=== PATIENT | male | born 1955 | race Hispanic/Latino ===

== ENCOUNTER 2017-07-04 09:49 | Emergency (ER) | payer OTHER ==
[2017-07-04 10:00] VITALS: RESP 18; TEMP 98; BMI 31.8
--- NOTE | 2017-07-04 10:23 | ED PDOC ---
Arrival/HPI - General Chief Complaint: Lower Extremity Problem/Injury Time Seen by Provider: 07/04/17 09:56 Historian: Patient - History of Present Illness Narrative History of Present Illness (Text): 07/04/17 10:18 61 year old male, with past medical history of hypertension and hypothyroidism, presents to the Emergency department complaining of episodes of paralysis between 7-8pm at night for three nights in a row. Patient informs his episodes begin exactly during that hour and lasts the entire night. Patient informs waking up with generalized weakness after the episodes. Patient currently denies any complaints but requests medical attention for his episodes. Patient denies any fever, chills, nausea, vomiting, diarrhea, abdominal pain, chest pain , shortness of breath or any other complaints. Time/Duration: < week Symptom Course: Unchanged Activities at Onset: Sleeping Context: Home Past Medical History - Provider Review Nursing Documentation Reviewed: Yes - Cardiac Hx Cardiac Disorders: Yes Hx Hypertension: Yes - HEENT Hx HEENT Disorder: Yes Hx Cataracts: Yes (BILATERAL SURGERY) - Endocrine/Metabolic Hx Hypothyroidism: Yes - Musculoskeletal/Rheumatological Hx Musculoskeletal Disorders: Yes Hx Falls: No Hx Unsteady Gait: Yes (CANE) - Psychiatric Hx Psychophysiologic Disorder: Yes Hx Anxiety: Yes Hx Substance Use: No - Surgical History Hx Appendectomy: Yes Other/Comment: BILATERAL CATARACT SURGERY Family/Social History - Physician Review Nursing Documentation Reviewed: Yes Family/Social History: Unknown Family HX Smoking Status: Never Smoked Hx Alcohol Use: No Hx Substance Use: No Allergies/Home Meds Allergies/Adverse Reactions: Allergies ciprofloxacin Allergy (Verified 09/12/15 13:28) RASH Home Medications: Home Meds Medication Instructions Recorded Confirmed Atorvastatin [Lipitor] 20 mg PO DAILY 09/12/15 07/04/17 Clonazepam [Klonopin] 0.5 mg PO QID 09/12/15 07/04/17 Folic Acid 1 mg PO Q4 09/12/15 07/04/17 Lansoprazole [Prevacid] 30 mg PO DAILY 09/12/15 07/04/17 Levothyroxine [Synthroid] 100 mcg PO DAILY 09/12/15 07/04/17 Review of Systems - Physician Review All systems were reviewed & negative as marked: Yes - Review of Systems Constitutional: Normal. absent: Fevers Eyes: Normal ENT: Normal Respiratory: Normal. absent: SOB Cardiovascular: Normal. absent: Chest Pain Gastrointestinal: Normal. absent: Abdominal Pain, Diarrhea, Nausea, Vomiting Genitourinary Male: Normal Musculoskeletal: Other (subjective paralysis) Skin: Normal Neurological: Normal Endocrine: Normal Hemo/Lymphatic: Normal Psychiatric: Normal Physical Exam Vital Signs Reviewed: Yes Vital Signs Temp Pulse Resp BP Pulse Ox 07/04/17 10:02 103 H 18 148/81 99 07/04/17 09:59 98.0 F 103 H 18 148/81 97 Temperature: Afebrile Blood Pressure: Normal Pulse: Tachycardic Respiratory Rate: Normal Appearance: Positive for: Well-Appearing, Other (Anxious. Animated with frequent expression of excentric ideas to the questions being asked.) Pain Distress: None Mental Status: Positive for: Alert and Oriented X 3 - Systems Exam Head: Present: Atraumatic, Normocephalic Pupils: Present: PERRL Extroacular Muscles: Present: EOMI Conjunctiva: Present: Normal Mouth: Present: Moist Mucous Membranes, Other (Some questionable involuntary movement of the tongue.) Neck: Present: Normal Range of Motion Respiratory/Chest: Present: Clear to Auscultation, Good Air Exchange. No: Respiratory Distress, Accessory Muscle Use Cardiovascular: Present: Regular Rate and Rhythm, Normal S1, S2, Tachycardic. No: Murmurs Abdomen: Present: Normal Bowel Sounds. No: Tenderness, Distention, Peritoneal Signs Back: Present: Normal Inspection Upper Extremity: Present: Normal Inspection. No: Cyanosis, Edema Lower Extremity: Present: Normal Inspection. No: Edema Neurological: Present: GCS=15, CN II-XII Intact, Speech Normal Skin: Present: Warm, Dry, Normal Color. No: Rashes Psychiatric: Present: Alert, Oriented x 3, Anxious (Verbalizes excentric ideas to the topic. Denies any anti-psychotic medication.) Medical Decision Making ED Course and Treatment: 07/04/17 10:24 Impression: 61 year old male presents to the Emergency department complaining episodes of paralysis. Plan: -- Labs -- EKG -- Reassess and disposition Progress Notes: 07/04/17 12:35 Patient is ambulating without difficulty. Requests something to eat. Lab results reviewed and shows no alarming findings. Results were explained to the patient, who shows understanding and agrees with plan. - Lab Interpretations Lab Results: 07/04/17 11:20 07/04/17 11:20 Lab Results 07/04/17 11:20: Sodium 133, Potassium 3.6, Chloride 95 L, Carbon Dioxide 24, Anion Gap 17, BUN 9, Creatinine 0.7 L, Est GFR ( Amer) > 60, Est GFR (Non -Af Amer) > 60, Random Glucose 117 H, Calcium 10.1, Total Bilirubin 0.6, AST 49 , ALT 41, Alkaline Phosphatase 44, Troponin I < 0.01, Total Protein 8.1, Albumin 4.6, Globulin 3.5, Albumin/Globulin Ratio 1.3 07/04/17 11:20: WBC 9.9 D, RBC 4.10, Hgb 13.0 L, Hct 36.5 L, MCV 89.0, MCH 31.7 , MCHC 35.6, RDW 12.7, Plt Count 306, MPV 9.3, Gran % 67.4, Lymph % (Auto) 22.4 , [place] % (Auto) 9.5 H, Eos % (Auto) 0.6 L, Baso % (Auto) 0.1, Gran # 6.69 H, Lymph # (Auto) 2.2, [place] # (Auto) 0.9 H, Eos # (Auto) 0.1, Baso # (Auto) 0.01 - Scribe Statement The provider has reviewed the documentation as recorded by the Scribe Kenton Brewer. All medical record entries made by the Scribe were at my direction and personally dictated by me. I have reviewed the chart and agree that the record accurately reflects my personal performance of the history, physical exam, medical decision making, and the department course for this patient. I have also personally directed, reviewed, and agree with the discharge instructions and disposition. Disposition/Present on Arrival - Present on Arrival Any Indicators Present on Arrival: No History of DVT/PE: No History of Uncontrolled Diabetes: No Urinary Catheter: No History of Decub. Ulcer: No History Surgical Site Infection Following: None - Disposition Have Diagnosis and Disposition been Completed?: Yes Diagnosis: Weakness, Anxiety Disposition: HOME/ ROUTINE Disposition Time: 13:00 Patient Plan: Discharge Condition: STABLE Discharge Instructions (ExitCare): Weakness (ED) Additional Instructions: see Dr Vinson. Consider further tests as an outpatient. Return to ER if symptoms return and persist. Referrals: Aquilino Vinson MD [Primary Care Provider] - Follow up with primary Forms: [employer] (Nepalese)
[2017-07-04 11:47] LABS: BASO # 0.01 K/mm3 (0.0-2.0); BASO % 0.1 % (0.0-3.0); EOS # 0.1 (0.0-0.7); EOS % 0.6 % (1.5-5.0); GRAN # 6.69 (1.4-6.5); GRAN % 67.4 % (50.0-68.0); LYMPH # 2.2 (1.2-3.4); LYMPH % 22.4 % (22.0-35.0); MEAN CORPUSCULAR HEMOGLOBIN 31.7 pg (25.0-35.0); MEAN CORPUSCULAR HGB CONC 35.6 g/dl (31.0-37.0); MEAN PLATELET VOLUME 9.3 fl (7.0-11.0); MONO # 0.9 (0.1-0.6); MONO % 9.5 % (1.0-6.0); RBC 4.1 10^6/uL (3.5-6.1); RED CELL DISTRIBUTION WIDTH 12.7 % (11.5-14.5); WHITE BLOOD COUNT 9.9 10^3/ul (4.5-11.0)
[2017-07-04 11:49] LABS: ALB/GLOB RATIO 1.3 (1.1-1.8); ALBUMIN 4.6 g/dL (3.0-4.8); ALT/SGPT 41 U/L (7-56); AST/SGOT 49 U/L (17-59); BLOOD UREA NITROGEN 9 mg/dL (7-21); CALCIUM 10.1 mg/dL (8.4-10.5); GFR AFRICAN-AMERICAN > 60; GFR NON-AFRICAN AMERICAN > 60
[2017-07-04 12:00] LABS: TROPONIN I < 0.01 ng/mL
[2017-07-04 13:29] VITALS: BP 171/86; PULSE 103; O2SAT 98
--- NOTE | 2017-07-05 09:46 | CARD ---
APPROVED REPORT EKG Measurement Heart [id number] <Conclusion> Normal sinus rhythm Moderate voltage criteria for LVH, may be normal variant NSSTW changes Prolonged QTc
== END 2017-07-04 13:37 | disposition home or self-care (01) ==
LOC: ED 09:49
DX: R53.1 Weakness (principal); F41.9 Anxiety disorder, unspecified

== ENCOUNTER 2017-07-22 11:22 | Emergency (ER) | payer OTHER ==
[2017-07-22 11:23] VITALS: BMI 31.8
[2017-07-22 11:44] VITALS: RESP 18
--- NOTE | 2017-07-22 12:27 | ED PDOC ---
Arrival/HPI - General Chief Complaint: Weakness/Neurological Deficit Time Seen by Provider: 07/22/17 11:24 Historian: Patient - History of Present Illness Narrative History of Present Illness (Text): 07/22/17 12:19 A 61 year old male presents to the emergency department for evaluation. Patient reports for the past 2 weeks while trying to sleep both his arms become paralyzed. He notes experiencing a similar numbing sensation last night which caused him to come into the emergency room today. Patient reports he has not taken his blood pressure medication for 3 years because he is scared of falling. Patient denies any fever, chills, nausea, vomiting, abdominal pain, chest pain, shortness of breath, headache, dizziness or any other complaints. PMD: Dr. Vinson Time/Duration: Other (2 weeks) Symptom Course: Unchanged Context: Home Past Medical History - Provider Review Nursing Documentation Reviewed: Yes - Infectious Disease Hx of Infectious Diseases: None - Cardiac Hx Cardiac Disorders: Yes Hx Hypertension: Yes - HEENT Hx HEENT Disorder: Yes Hx Cataracts: Yes (BILATERAL SURGERY) - Endocrine/Metabolic Hx Hypothyroidism: Yes - Musculoskeletal/Rheumatological Hx Musculoskeletal Disorders: Yes Hx Unsteady Gait: Yes (CANE) - Psychiatric Hx Psychophysiologic Disorder: Yes Hx Anxiety: Yes Hx Substance Use: No - Surgical History Hx Appendectomy: Yes Other/Comment: BILATERAL CATARACT SURGERY Family/Social History - Physician Review Nursing Documentation Reviewed: Yes Family/Social History: No Known Family HX Smoking Status: Never Smoked Hx Alcohol Use: No Hx Substance Use: No Allergies/Home Meds Allergies/Adverse Reactions: Allergies ciprofloxacin Allergy (Verified 07/22/17 12:03) RASH steriod Allergy (Uncoded 07/22/17 12:03) ANAPHYLAXIS Home Medications: Home Meds Medication Instructions Recorded Confirmed Atorvastatin [Lipitor] 20 mg PO DAILY 09/12/15 07/22/17 Clonazepam [Klonopin] 0.5 mg PO QID 09/12/15 07/22/17 Folic Acid 1 mg PO Q4 09/12/15 07/22/17 Lansoprazole [Prevacid] 30 mg PO DAILY 09/12/15 07/22/17 Levothyroxine [Synthroid] 100 mcg PO DAILY 09/12/15 07/22/17 Review of Systems - Physician Review All systems were reviewed & negative as marked: Yes - Review of Systems Constitutional: absent: Fevers, Night Sweats Respiratory: absent: SOB Cardiovascular: absent: Chest Pain Gastrointestinal: absent: Abdominal Pain, Nausea, Vomiting Neurological: Other (bilateral arms become paralyzed at night). absent: Headache, Dizziness Physical Exam Vital Signs Reviewed: Yes Vital Signs Temp Pulse Resp BP Pulse Ox 07/22/17 14:15 86 18 154/94 H 98 07/22/17 14:08 131 H 172/110 H 07/22/17 13:23 115 H 18 172/110 H 99 07/22/17 12:00 18 07/22/17 11:44 98.1 F 102 H 18 152/110 H 98 Temperature: Afebrile Blood Pressure: Hypertensive Pulse: Tachycardic Respiratory Rate: Normal Appearance: Positive for: Well-Appearing, Non-Toxic, Comfortable Pain Distress: None Mental Status: Positive for: Alert and Oriented X 3 Finger Stick Blood Glucose: 95 - Systems Exam Head: Present: Atraumatic, Normocephalic Pupils: Present: PERRL Extroacular Muscles: Present: EOMI Conjunctiva: Present: Normal Mouth: Present: Moist Mucous Membranes Neck: Present: Normal Range of Motion Respiratory/Chest: Present: Clear to Auscultation, Good Air Exchange. No: Respiratory Distress, Accessory Muscle Use Cardiovascular: Present: Regular Rate and Rhythm, Normal S1, S2. No: Murmurs Abdomen: Present: Normal Bowel Sounds. No: Tenderness, Distention, Peritoneal Signs Back: Present: Normal Inspection Upper Extremity: Present: Normal Inspection, Normal ROM, NORMAL PULSES, Neurovascularly Intact. No: Cyanosis, Edema, Tenderness, Swelling, Erythema, Temperature Abnormalties, Deformity Lower Extremity: Present: Normal Inspection, NORMAL PULSES, Normal ROM, Neurovascularly Intact. No: Edema, CALF TENDERNESS Neurological: Present: GCS=15, CN II-XII Intact, Speech Normal, Motor Func Grossly Intact, Normal Sensory Function, Normal Cerebellar Funct Skin: Present: Warm, Dry, Normal Color. No: Rashes Psychiatric: Present: Alert, Oriented x 3, Normal Insight, Normal Concentration Medical Decision Making ED Course and Treatment: 07/22/17 12:19 Impression: A 61 year old male presents for evaluation concerning bilateral arm paralysis at night when trying to sleep. Differential Diagnosis included but are not limited to: CVA vs Electrolyte Abnormality vs Neuropathy Plan: -- Head CT -- Chest xray -- EKG -- Labs -- Urinalysis -- Reassess and disposition Progress Notes: EKG shows NSR at [address]-segment elevations, normal intervals, normal axis. Interpreted by me. Report Date : 07/22/2017 13:19:27 PROCEDURE: CHEST RADIOGRAPH, 1 VIEW Dictator : Mikel Grossman MD IMPRESSION: No active disease. 07/22/17 13:[address] findings with radiologist, reports SAH. Will consult neurosurgery. Report Date : 07/22/2017 13:22:45 PROCEDURE: CT HEAD WITHOUT CONTRAST. Dictator : Gómez Miranda MD IMPRESSION: Small curvilinear high attenuation in the left frontal lobe, possibly sulcal blood representing subarachnoid hemorrhage. Alternatively, this could represent small cortical calcification. However, followup with noncontrast CT advised in 24 hours. Alternatively, this could be pursued with magnetic resonance imaging. Chronic white matter ischemic change peer no evidence of acute infarct. No additional abnormality. Examination limited due to patient motion artifact. 07/22/17 13:[address] Osei who recommends transfer to [facility] for Neuro ICU. Case discussed with Dr. Harley Shah who will accept the case for transfer. He recommended to order cardene and titrate the blood pressure to SBP <120. Patient is comfortable. He denies MARLEY or any new neurological symptoms. He agreed to transfer and signed consent. PAWAN Hernández aware of process. - Critical Care Critical Care Minutes: 30 minutes - Lab Interpretations Lab Results: 07/22/17 12:25 07/22/17 12:25 Lab Results 07/22/17 12:36: Urine Opiates Screen Negative, Urine Methadone Screen Negative, Ur Barbiturates Screen Negative, Ur Phencyclidine Scrn Negative, Ur Amphetamines Screen Negative, U Benzodiazepines Scrn Negative, U Oth Cocaine Metabols Negative, U Cannabinoids Screen Negative 07/22/17 12:25: Urine Color Yellow, Urine Appearance Clear, Urine pH 6.5, Ur Specific [place] <= 1.005, Urine Protein Negative, Urine Glucose (UA) Negative, Urine Ketones Negative, Urine Blood Small H, Urine Nitrate Negative, Urine Bilirubin Negative, Urine Urobilinogen 0.2, Ur Leukocyte Esterase Negative, Urine RBC 5 - 10, Urine WBC 0 - 2, Ur Epithelial Cells None, Urine Bacteria Many 07/22/17 12:25: Blood Type A POSITIVE, Antibody Screen Negative, BBK History Checked No verified bt 07/22/17 12:25: Sodium 135, Potassium 3.3 L, Chloride 92 L, Carbon Dioxide 28, Anion Gap 17, BUN 7, Creatinine 0.7 L, Est GFR ( Amer) > 60, Est GFR (Non -Af Amer) > 60, Random Glucose 119 H, Calcium 10.6 H, Total Bilirubin 0.6, AST 47, ALT 47, Alkaline Phosphatase 51, Troponin I < 0.01, Total Protein 8.6 H, Albumin 4.9 H, Globulin 3.7, Albumin/Globulin Ratio 1.3, Triglycerides 179 H, Cholesterol 237 H, LDL Cholesterol Direct 147 H, HDL Cholesterol 48 07/22/17 12:25: PT 11.9, INR 1.03, APTT 31.4 07/22/17 12:25: WBC 9.3, RBC 4.10, Hgb 13.0 L, Hct 37.1 L, MCV 90.5, MCH 31.7, MCHC 35.0, RDW 12.7, Plt Count 342, MPV 9.2, Gran % 71.2 H, Lymph % (Auto) 19.6 L, [place] % (Auto) 8.1 H, Eos % (Auto) 0.9 L, Baso % (Auto) 0.2, Gran # 6.60 H, Lymph # (Auto) 1.8, [place] # (Auto) 0.8 H, Eos # (Auto) 0.1, Baso # (Auto) 0.02 07/22/17 12:02: POC Glucose (mg/dL) 95 I have reviewed the lab results: Yes Interpretation: Abnormal lab values (potassium low and replaced with PO potassium) - RAD Interpretation Radiology Orders: 07/22/17 12:17 CHEST ONE VIEW [RAD] Stat 07/22/17 12:18 HEAD W/O CONTRAST [CT] Stat CXR with no acute infiltrate Quality Tester: ED Physician - Medication Orders Current Medication Orders: Nicardipine HCl (Cardene Iv Premix) 20 mg in 200 mls @ 50 mls/hr IV .Q4H PRN; Protocol; 5 MG/HR PRN Reason: TITRATE PER MD ORDER Discontinued Medications Labetalol HCl (Trandate) 20 mg IV STAT STA Stop: 07/22/17 13:46 Last Admin: 07/22/17 14:08 Dose: 20 mg eMAR Start Stop Document 07/22/17 14:08 SF (Rec: 07/22/17 14:09 [place] [id number] Intravenous Solution Start Date 07/22/17 Start Time 14:08 MAR Pulse and Blood Pressure Document 07/22/17 14:08 SF (Rec: 07/22/17 14:09 SF [id number] Pulse Pulse Rate (60-90) 131 Blood Pressure Blood Pressure (100/60-150/90) 172/110 Potassium Chloride (K-Dur 20 Meq Er Tab) 40 meq PO STAT STA Stop: 07/22/17 13:17 Last Admin: 07/22/17 13:51 Dose: 40 meq NIHSS Scale ([place]) Time Performed: 11:24 - How Severe is the [place]oke Baseline Level of Consciousness: 0=Alert LOC to Questions: 0=Both comments correct LOC to commands: 0=Obeys both correctly Best Gaze: 0=Normal Visual: 0=No visual loss Facial: 0=Normal Motor Arm - Left: 0=No drift Motor Arm - Right: 0=No drift Motor Leg - Left: 0=No drift Motor Leg - Right: 0=No drift Limb Ataxia: 0=Absent Sensory: 0=Normal Best Language: 0=No aphasia Dysarthia: 0=Normal articulation Extinction & Inattention (Neglect): 0=Normal, no object Score: 0 Risk Level: No Stroke Risk rTPA Inclusion/Exclusion - Refusal of Treatment Patient Refused Treatment: No - Inclusion Criteria for Altepase Patient is 18 years or Older: Yes The Clinical Diagnosis of Ischemic Stroke That is Causing a Potentially Disabling Neurological Deficit: No Time of Onset is Well Established to be Less Than 270 Minute Before Treatment Would Begin: No Risk/Benefit Discussed With Patient/Family Member Present: No - Exclusion Criteria for Altepase Evidence of an Intracranial Hemorrhage: Yes - Scribe Statement The provider has reviewed the documentation as recorded by the Regi Loja Provider Scribe Attestation: All medical record entries made by the Scribe were at my direction and personally dictated by me. I have reviewed the chart and agree that the record accurately reflects my personal performance of the history, physical exam, medical decision making, and the department course for this patient. I have also personally directed, reviewed, and agree with the discharge instructions and disposition. Disposition/Present on Arrival - Present on Arrival Any Indicators Present on Arrival: No History of DVT/PE: No History of Uncontrolled Diabetes: No Urinary Catheter: No History of Decub. Ulcer: No History Surgical Site Infection Following: None - Disposition Have Diagnosis and Disposition been Completed?: Yes Diagnosis: Hypertensive urgency, SAH (subarachnoid hemorrhage) Disposition: HOSPITALIZED Disposition Time: 15:00 Condition: FAIR Referrals: Aquilino Vinson MD [Primary Care Provider] - Follow up with primary Forms: [employer] ([place]wana)
[2017-07-22 13:00] LABS: BASO # 0.02 K/mm3 (0.0-2.0); BASO % 0.2 % (0.0-3.0); EOS # 0.1 (0.0-0.7); EOS % 0.9 % (1.5-5.0); GRAN # 6.6 (1.4-6.5); GRAN % 71.2 % (50.0-68.0); LYMPH # 1.8 (1.2-3.4); LYMPH % 19.6 % (22.0-35.0); MEAN CELL VOLUME 90.5 fl (80.0-105.0); MEAN CORPUSCULAR HEMOGLOBIN 31.7 pg (25.0-35.0); MEAN PLATELET VOLUME 9.2 fl (7.0-11.0); MONO # 0.8 (0.1-0.6); MONO % 8.1 % (1.0-6.0); PH,URINE 6.5 (4.7-8.0); RBC 4.1 10^6/uL (3.5-6.1); RED CELL DISTRIBUTION WIDTH 12.7 % (11.5-14.5); URINE BILIRUBIN NEGATIVE (NEGATIVE); URINE BLOOD SMALL (NEGATIVE); URINE COLOR YELLOW (YELLOW); URINE GLUCOSE (UA) NEGATIVE (NEGATIVE); URINE LEUKOCYTE ESTERASE NEGATIVE Leu/uL (NEGATIVE); URINE PROTEIN NEGATIVE mg/dL (<30 mg/dL); URINE UROBILINOGEN 0.2 E.U./dL (<1 E.U./dL); WHITE BLOOD COUNT 9.3 10^3/ul (4.5-11.0)
[2017-07-22 13:00] LABS: BARBITURATES, UR NEGATIVE (NEGATIVE); BENZODIAZEPINES, UR NEGATIVE (NEGATIVE); OPIATES, UR NEGATIVE (NEGATIVE); PHENCYCLIDINE, UR NEGATIVE (NEGATIVE)
[2017-07-22 13:01] LABS: URINE APPEARANCE CLEAR (CLEAR)
[2017-07-22 13:11] LABS: ALB/GLOB RATIO 1.3 (1.1-1.8); ALBUMIN 4.9 g/dL (3.0-4.8); ALT/SGPT 47 U/L (7-56); AST/SGOT 47 U/L (17-59); BLOOD UREA NITROGEN 7 mg/dL (7-21); CALCIUM 10.6 mg/dL (8.4-10.5); GFR AFRICAN-AMERICAN > 60; GFR NON-AFRICAN AMERICAN > 60; HDL CHOLESTEROL 48 mg/dL (29-60)
[2017-07-22 13:13] LABS: INR 1.03 (0.93-1.08); PARTIAL THROMBOPLASTIN TIME 31.4 Seconds (25.1-36.5); PROTHROMBIN TIME 11.9 SECONDS (9.4-12.5)
[2017-07-22] MEDS ORDERED: Potassium Chloride 20 mEq ER Tab PO STA (13:16)
[2017-07-22 13:18] LABS: TROPONIN I < 0.01 ng/mL; URINE BACTERIA MANY (NEG); URINE WBC 0 - 2 /hpf (0-6)
[2017-07-22 13:19] LABS: LDL CHOLESTEROL 147 mg/dL (0-129)
--- NOTE | 2017-07-22 13:21 | RAD ---
PROCEDURE: CHEST RADIOGRAPH, 1 VIEW HISTORY: Code Stroke COMPARISON: 09/12/2015 FINDINGS: LUNGS: Clear. PLEURA: No pneumothorax or pleural fluid seen. CARDIOVASCULAR: Normal. OSSEOUS STRUCTURES: No significant abnormalities. VISUALIZED UPPER ABDOMEN: Normal. OTHER FINDINGS: None. IMPRESSION: No active disease.
--- NOTE | 2017-07-22 13:24 | CT ---
PROCEDURE: CT HEAD WITHOUT CONTRAST. HISTORY: upper arm weakness b/l COMPARISON: None available. TECHNIQUE: Axial computed tomography images were obtained through the head/brain without intravenous contrast. Radiation dose: Total exam DLP = 984.7 mGy-cm. This CT exam was performed using one or more of the following dose reduction techniques: Automated exposure control, adjustment of the mA and/or kV according to patient size, and/or use of iterative reconstruction technique. FINDINGS: HEMORRHAGE: Small curvilinear high attenuation left frontal lobe, possibly sulcal, possibly representing a very small amount of subarachnoid blood. This is seen on series 4, image 43. Followup with noncontrast CT advised within 24 hours for evaluation with magnetic resonance imaging is advised. No other intracranial hemorrhage identified elsewhere. BRAIN: Examination limited due to patient motion artifact. Minimal age-appropriate atrophy. Moderate periventricular white matter lucency with patchy and confluent deep white matter lucency consistent with chronic microvascular ischemic change. No evidence of acute infarct. VENTRICLES: Unremarkable. No hydrocephalus. CALVARIUM: Unremarkable. PARANASAL SINUSES: Unremarkable as visualized. No significant inflammatory changes. MASTOID AIR CELLS: Unremarkable as visualized. No inflammatory changes. OTHER FINDINGS: None. IMPRESSION: Small curvilinear high attenuation in the left frontal lobe, possibly sulcal blood representing subarachnoid hemorrhage. Alternatively, this could represent small cortical calcification. However, followup with noncontrast CT advised in 24 hours. Alternatively, this could be pursued with magnetic resonance imaging. Chronic white matter ischemic change peer no evidence of acute infarct. No additional abnormality. Examination limited due to patient motion artifact. Findings discussed by telephone with Dr. Feng at 1:20 p.m. on 07/22/2017.
[2017-07-22] MEDS ORDERED: Labetalol 5 mg/ml Inj 20ML IV STA (13:45)
[2017-07-22] MEDS ORDERED: Nicardipine 20 MG/200 ML 20 MG/200 ML BAG IV PRN (15:11)
[2017-07-22 16:11] VITALS: TEMP 98; O2SAT 97
[2017-07-22 16:24] VITALS: BP 172/99; PULSE 87
--- NOTE | 2017-07-22 19:41 | CARD ---
APPROVED REPORT EKG Measurement Heart [id number] <Conclusion> Normal sinus rhythm Prolonged QT Abnormal ECG
== END 2017-07-22 16:18 | disposition short-term general hospital (02) ==
LOC: ED 11:22
DX: I60.9 Nontraumatic subarachnoid hemorrhage, unspecified (principal); I16.0 Hypertensive urgency; E03.9 Hypothyroidism, unspecified

== ENCOUNTER 2017-10-22 08:40 | Inpatient (IN) | payer OTHER ==
[2017-10-22] MEDS ORDERED: Metoprolol 1 mg/ml Inj IVP STA ×3 (09:28→12:40)
--- NOTE | 2017-10-22 09:34 | ED PDOC ---
Arrival/HPI - General Chief Complaint: High Blood Pressure Time Seen by Provider: 10/22/17 09:17 Historian: Patient - History of Present Illness Narrative History of Present Illness (Text): 10/22/17 09:27 Patient is a 61 year old male who presents to Emergency department by EMS complaining of hypertension with associated headaches. Patient reports that EMS measured his BP on site and found it to be 200/110. His BP is currently 185/ 152. Patient states last weekend his upper extremities felt numb, which he describes as "like they were disconnected from his body", but notes this sensation has resolved. He has been noncompliant with his antihypertensive medications for the past 6 weeks. Of note In the past he was prescribed Lisinopril but discontinued taking it because he felt it made him aggravated. Patient denies fevers, chills, cough, abdominal pain, nausea, vomiting, diarrhea , homicidal ideation, suicidal ideation, or any other complaint. Time/Duration: Prior to Arrival Symptom Onset: Sudden Symptom Course: Improving Context: Home Past Medical History - Provider Review Nursing Documentation Reviewed: Yes - Infectious Disease Hx of Infectious Diseases: None - Cardiac Hx Cardiac Disorders: Yes Hx Hypertension: Yes - HEENT Hx HEENT Disorder: Yes Hx Cataracts: Yes (BILATERAL SURGERY) - Endocrine/Metabolic Hx Hypothyroidism: Yes - Musculoskeletal/Rheumatological Hx Musculoskeletal Disorders: Yes Hx Unsteady Gait: Yes (CANE) - Psychiatric Hx Psychophysiologic Disorder: Yes Hx Anxiety: Yes Hx Substance Use: No - Surgical History Hx Appendectomy: Yes Other/Comment: BILATERAL CATARACT SURGERY - Anesthesia Hx Anesthesia: No Family/Social History - Physician Review Nursing Documentation Reviewed: Yes Family/Social History: No Known Family HX Smoking Status: Never Smoked Hx Alcohol Use: No Hx Substance Use: No Allergies/Home Meds Allergies/Adverse Reactions: Allergies ciprofloxacin Allergy (Verified 10/22/17 08:56) RASH steriod Allergy (Uncoded 07/22/17 12:03) ANAPHYLAXIS Home Medications: Home Meds Medication Instructions Recorded Confirmed Atorvastatin [Lipitor] 20 mg PO DAILY 09/12/15 10/22/17 Clonazepam [Klonopin] 0.5 mg PO QID 09/12/15 10/22/17 Folic Acid 1 mg PO Q4 09/12/15 10/22/17 Lansoprazole [Prevacid] 30 mg PO DAILY 09/12/15 10/22/17 Levothyroxine [Synthroid] 100 mcg PO DAILY 09/12/15 10/22/17 Review of Systems - Physician Review All systems were reviewed & negative as marked: Yes - Review of Systems Constitutional: absent: Fevers, Night Sweats Respiratory: absent: Cough Gastrointestinal: absent: Abdominal Pain, Diarrhea, Nausea, Vomiting Neurological: Headache Psychiatric: absent: Suicidal Ideation, Other (No homicidal ideation) Physical Exam Vital Signs Reviewed: Yes Vital Signs Temp Pulse Resp BP Pulse Ox 10/22/17 15:45 98 F 60 18 156/92 H 100 10/22/17 15:44 80 18 158/82 H 97 10/22/17 13:37 67 174/104 H 10/22/17 12:49 79 177/90 H 10/22/17 12:37 79 18 177/90 H 100 10/22/17 11:39 86 18 182/102 H 100 10/22/17 10:03 102 H 201/126 H 10/22/17 08:58 98.0 F 92 H 14 185/152 H 100 Temperature: Afebrile Blood Pressure: Hypertensive Pulse: Regular Respiratory Rate: Normal Appearance: Positive for: Well-Appearing Mental Status: Positive for: Alert and Oriented X 3 - Systems Exam Head: Present: Atraumatic, Normocephalic Pupils: Present: PERRL Extroacular Muscles: Present: EOMI Conjunctiva: Present: Normal Mouth: Present: Moist Mucous Membranes Neck: Present: Normal Range of Motion Respiratory/Chest: Present: Clear to Auscultation, Good Air Exchange. No: Respiratory Distress, Accessory Muscle Use Cardiovascular: Present: Regular Rate and Rhythm, Normal S1, S2. No: Murmurs Abdomen: No: Tenderness, Distention, Peritoneal Signs Back: Present: Normal Inspection Upper Extremity: Present: Normal Inspection. No: Cyanosis, Edema Lower Extremity: Present: Normal Inspection. No: Edema Neurological: Present: GCS=15, CN II-XII Intact, Speech Normal Skin: Present: Warm, Dry, Normal Color. No: Rashes Psychiatric: Present: Alert, Oriented x 3, Other ((+) Strange affect; tangential thoughts). No: Normal Insight, Normal Concentration, Normal Affect, Suicidal Ideation, Homicidal Ideation, Delusional Medical Decision Making ED Course and Treatment: 10/22/17 09:36 Impression: Patient is a 61 year old male brought to the Emergency department by EMS for hypertension with associated headaches. Differential Diagnosis included but are not limited to: hypertension urgency Plan: --Labs --cardiac enzymes --Chest X-ray --Lopressor -- Reassess and disposition Prior Visits: Notes and results from previous visits were reviewed. Patient was last seen in the emergency department on 07/22/17 for hypertension urgency and SAH and was hospitalized. Progress Notes: 10/22/17 09:40 EKG shows NSR at 93bpm with premature atrial complexes, LVH, and prolonged QT. Interpreted by me. 10/22/17 10:15 Chest X-ray shows cardiomegaly but no acute infiltrates. Interpreted by me. 10/22/17 13:00 Patient reevaluated and is in no acute distress but continues to appear confused and with altered mental status. 10/22/17 13:27 Discussed case with and suggested a psychiatry consult because of patient confusion and altered mental status. is aware and agrees to admit patient under his care. - Critical Care Critical Care Minutes: 30 minutes - Lab Interpretations Lab Results: 10/22/17 09:50 10/22/17 11:50 Lab Results 10/22/17 11:50: Sodium 140, Potassium 4.0, Chloride 98, Carbon Dioxide 27, Anion Gap 20, BUN 9, Creatinine 0.8, Est GFR ( Amer) > 60, Est GFR (Non- Af Amer) > 60, Random Glucose 110, Calcium 9.8, Total Bilirubin 0.5, AST 45, ALT 45, Alkaline Phosphatase 56, Lactate Dehydrogenase 633, Total Creatine Kinase 269 H, CK-MB (CK-2) 2.6, CK-MB (CK-2) % Cancelled, Troponin I < 0.01, NT- Pro-B Natriuret Pep 159, Total Protein 8.8 H, Albumin 4.9 H, Globulin 3.9, Albumin/Globulin Ratio 1.3 10/22/17 09:50: PT 12.1, INR 1.05 10/22/17 09:50: WBC 8.2, RBC 4.25, Hgb 13.4 L, Hct 37.7 L, MCV 88.7, MCH 31.5, MCHC 35.5, RDW 12.9, Plt Count 367, MPV 9.0, Gran % 69.0 H, Lymph % (Auto) 19.2 L, [place] % (Auto) 10.4 H, Eos % (Auto) 1.2 L, Baso % (Auto) 0.2, Gran # 5.67, Lymph # (Auto) 1.6, [place] # (Auto) 0.9 H, Eos # (Auto) 0.1, Baso # (Auto) 0.02 I have reviewed the lab results: Yes - RAD Interpretation Radiology Orders: 10/22/17 09:26 CHEST PORTABLE [RAD] Stat - EKG Interpretation Interpreted by ED Physician: Yes Type: 12 lead EKG - Medication Orders Current Medication Orders: Discontinued Medications Acetaminophen (Tylenol 325mg Tab) 650 mg PO Q4H PRN PRN Reason: Headache Last Admin: 10/23/17 08:31 Dose: 650 mg MAR Pain/Vitals Document 10/23/17 08:31 RDS (Rec: 10/23/17 08:31 RDS [id number]) Pain Reassessment Is This A Pain ReAssessment? No Presence of Pain Presence of Pain Yes Pain Scale Used Pain Scale Used Numeric Location Pain Location Body Stock Controller Intensity 3 Re-Assess: MAR Pain/Vitals Document 10/23/17 09:31 RDS (Rec: 10/23/17 10:23 RDS [id number]) Pain Reassessment Is This A Pain ReAssessment? Yes Sleep Is patient sleeping during reassessment? No Presence of Pain Presence of Pain No Amlodipine Besylate (Norvasc) 10 mg PO DAILY [facility] Last Admin: 10/22/17 14:16 Dose: Not Given Non-Admin Reason: Patient Refused Atorvastatin Calcium (Lipitor) 20 mg PO HS [facility] Last Admin: 10/22/17 21:19 Dose: 20 mg Clonazepam (Klonopin) 0.5 mg PO QID ACACIA PRN Reason: Protocol Last Admin: 10/23/17 13:47 Dose: 0.5 mg Behavioural Document 10/23/17 13:47 RDS (Rec: 10/23/17 13:47 RDS [id number]) Maintenance Maintenance Dose Yes Nonmedicinal Nonmedicinal Interventions Redirect Therapeutic Communication See nurse's notes Behavior Behavior for Medication: Anxiety Hydralazine HCl (Apresoline) 10 mg IVP STAT STA Stop: 10/22/17 13:37 Last Admin: 10/22/17 14:08 Dose: Hydrochlorothiazide (Hydrodiuril) 25 mg PO DAILY [facility] Last Admin: 10/23/17 09:23 Dose: Levothyroxine Sodium (Synthroid) 100 mcg PO DAILY [facility] Last Admin: 10/22/17 14:07 Dose: Levothyroxine Sodium (Synthroid) 100 mcg PO 0600 [facility] Last Admin: 10/23/17 08:31 Dose: 100 mcg Lisinopril (Zestril) 20 mg PO DAILY [facility] Last Admin: 10/23/17 09:22 Dose: Lorazepam (Ativan) 2 mg IVP ONCE ONE PRN Reason: Protocol Stop: 10/22/17 10:28 Last Admin: 10/22/17 11:24 Dose: 2 mg IVP Administration Document 10/22/17 11:24 LA (Rec: 10/22/17 11:25 LA [id number]) Charges for Administration # of IVP Administrations 1 Lorazepam (Ativan) 2 mg IVP ONCE ONE PRN Reason: Protocol Stop: 10/22/17 15:05 Last Admin: 10/22/17 15:12 Dose: 2 mg IVP Administration Document 10/22/17 15:12 LA (Rec: 10/22/17 15:12 LA [id number]) Charges for Administration # of IVP Administrations 1 Metoprolol Tartrate (Lopressor) 5 mg IVP STAT STA Stop: 10/22/17 09:29 Last Admin: 10/22/17 10:03 Dose: 5 mg IVP Administration Document 10/22/17 10:03 GMD (Rec: 10/22/17 10:06 D [id number]) Charges for Administration # of IVP Administrations 1 MAR Pulse and Blood Pressure Document 10/22/17 10:03 GMD (Rec: 10/22/17 10:06 GMD [id number]) Pulse Pulse Rate (60-90) 102 Blood Pressure Blood Pressure (100/60-150/90) 201/126 Metoprolol Tartrate (Lopressor) 5 mg IVP STAT STA Stop: 10/22/17 12:41 Last Admin: 10/22/17 12:49 Dose: 5 mg IVP Administration Document 10/22/17 12:49 LA (Rec: 10/22/17 12:50 SUMAN [id number]) Charges for Administration # of IVP Administrations 1 MAR Pulse and Blood Pressure Document 10/22/17 12:49 LA (Rec: 10/22/17 12:50 LA [id number]) Pulse Pulse Rate (60-90) 79 Blood Pressure Blood Pressure (100/60-150/90) 177/90 Metoprolol Tartrate (Lopressor) 5 mg IVP STAT STA Stop: 10/22/17 12:41 Last Admin: 10/22/17 13:37 Dose: 5 mg IVP Administration Document 10/22/17 13:37 LA (Rec: 10/22/17 13:41 MN [id number]) Charges for Administration # of IVP Administrations 1 JUL Pulse and Blood Pressure Document 10/22/17 13:37 LA (Rec: 10/22/17 13:41 LA [id number]) Pulse Pulse Rate (60-90) 67 Blood Pressure Blood Pressure (100/60-150/90) 174/104 Pneumococcal Polyvalent Vaccine (Pneumovax 23 Vaccine) 0.5 ml IM .ONCE ONE Stop: 10/22/17 23:22 Last Admin: 10/22/17 23:54 Dose: Immunization Registry Document 10/22/17 23:54 ST (Rec: 10/22/17 23:54 ST [id number]) Immunization Registry Consent Date 07/04/17 - Scribe Statement The provider has reviewed the documentation as recorded by the Veritoibe Jai Crowley Provider Scribe Attestation: All medical record entries made by the Scribe were at my direction and personally dictated by me. I have reviewed the chart and agree that the record accurately reflects my personal performance of the history, physical exam, medical decision making, and the department course for this patient. I have also personally directed, reviewed, and agree with the discharge instructions and disposition. Disposition/Present on Arrival - Present on Arrival Any Indicators Present on Arrival: No History of DVT/PE: No History of Uncontrolled Diabetes: No Urinary Catheter: No History of Decub. Ulcer: No History Surgical Site Infection Following: None - Disposition Have Diagnosis and Disposition been Completed?: Yes Diagnosis: Hypertensive crisis without congestive heart failure, Noncompliance with medication regimen, Altered mental status, unspecified, Hypertension, Confusion Disposition: HOSPITALIZED Disposition Time: 13:32 Patient Plan: Admission, Telemetry Condition: FAIR
[2017-10-22 10:01] LABS: BASO # 0.02 K/mm3 (0.0-2.0); BASO % 0.2 % (0.0-3.0); EOS # 0.1 (0.0-0.7); EOS % 1.2 % (1.5-5.0); GRAN # 5.67 (1.4-6.5); HEMOGLOBIN 13.4 g/dL (14.0-18.0); LYMPH # 1.6 (1.2-3.4); LYMPH % 19.2 % (22.0-35.0); MEAN CELL VOLUME 88.7 fl (80.0-105.0); MEAN CORPUSCULAR HEMOGLOBIN 31.5 pg (25.0-35.0); MEAN CORPUSCULAR HGB CONC 35.5 g/dl (31.0-37.0); MONO # 0.9 (0.1-0.6); MONO % 10.4 % (1.0-6.0); RBC 4.25 10^6/uL (3.5-6.1); RED CELL DISTRIBUTION WIDTH 12.9 % (11.5-14.5); WHITE BLOOD COUNT 8.2 10^3/ul (4.5-11.0)
[2017-10-22 10:04] LABS: INR 1.05 (0.93-1.08); PROTHROMBIN TIME 12.1 SECONDS (9.4-12.5)
--- NOTE | 2017-10-22 10:28 | RAD ---
HISTORY: hYPERTENSIVE uRGENCY COMPARISON: 07/22/2017 FINDINGS: LUNGS: No active pulmonary disease. PLEURA: No significant pleural effusion identified, no pneumothorax apparent. CARDIOVASCULAR: Normal. OSSEOUS STRUCTURES: No significant abnormalities. VISUALIZED UPPER ABDOMEN: Normal. OTHER FINDINGS: None. IMPRESSION: No active disease.
[2017-10-22 12:14] LABS: ALB/GLOB RATIO 1.3 (1.1-1.8); ALBUMIN 4.9 g/dL (3.0-4.8); ALT/SGPT 45 U/L (7-56); AST/SGOT 45 U/L (17-59); BLOOD UREA NITROGEN 9 mg/dL (7-21); CALCIUM 9.8 mg/dL (8.4-10.5); GFR AFRICAN-AMERICAN > 60; GFR NON-AFRICAN AMERICAN > 60
[2017-10-22 12:24] LABS: B-TYPE NATRIURETIC PEPTIDE 159 pg/mL (0-450); TROPONIN I < 0.01 ng/mL
[2017-10-22 12:31] LABS: CK-MB 2.6 ng/mL (0.0-3.6)
[2017-10-22] MEDS ORDERED: Levothyroxine 100 MCG TAB PO SCH (13:30)
--- NOTE | 2017-10-22 15:40 | CARD ---
APPROVED REPORT EKG Measurement Heart [id number] <Conclusion> Sinus rhythm 1 PVC Moderate voltage criteria for LVH, may be normal variant Prolonged QT
[2017-10-22 23:21] VITALS: BMI 34.1
[2017-10-22] MEDS ORDERED: Pneumococcal 23-Valent Vaccine IM ONE (23:21)
[2017-10-23 06:01] VITALS: O2SAT 99
[2017-10-23] MEDS ORDERED: Levothyroxine 100 MCG TAB PO SCH (08:15)
[2017-10-23 12:38] VITALS: BP 147/90; PULSE 81; RESP 21; TEMP 98.7
--- NOTE | 2017-10-23 14:49 | CON ---
DATE: HISTORY OF PRESENT ILLNESS: In short, the patient is 61-year-old male. The patient was admitted into the medical side for evaluation of hypertensive urgency; blood pressure 200/110. Psych consult was called for evaluation of possible change in mental status and the patient has history of mental illness. This typewriters functional tester had prolonged conversation with the patient. The patient presented to be alert. Thought process was some somewhat circumstantial and tangential. The patient reported that he had been on benzodiazepines, initially Xanax for 11 years, after that on Klonopin for 18 years. The patient reported that he wants to be weaned off or he wants to change Klonopin to Ativan, was asking what is the equivalence of that medication. At the same time, the patient was asking certain questions and after that, would give rejection of the answers; for example, when this typewriters functional tester educated the patient about benzodiazepines. The patient was making statement that he does not want to make any changes with his regimen later on. The patient was asking if it is mack for him to change medication to Ativan. The patient has followup appointment with the psychiatrist at [facility]. The patient reported that he is going there and is compliant with the medications. The patient reported that he lives alone; at times, he feels lonely. Denied thoughts of harming himself or others. Denied intent or plan. Vital signs are stable. Temperature 98, pulse 73, blood pressure 149/80, respirations 20, oxygen saturation is 98. Medications reviewed. The patient is on Tylenol, Lipitor, Klonopin 0.5 mg three times day, hydrochlorothiazide, Synthroid and Zestril. Labs reviewed. most recent yesterday. PAST PSYCHIATRIC HISTORY: The patient denied history of suicidal attempt. The patient denied history of being depressed. The patient denied history of being admitted to the psychiatric inpatient unit, but when this typewriters functional tester introduced herself, the patient said right away that he does not want to be admitted to the psychiatric inpatient unit which gives this typewriters functional tester impression, most likely the patient was admitted into the psychiatric inpatient unit before, but the patient denied. MENTAL STATUS EXAMINATION: The patient presented to be alert, somewhat guarded. Intense eye contact. Speech was low volume or productive. Thought process is circumstantial and tangential. Thought content, the patient denied visual, auditory, tactile hallucinations. Denied paranoid ideation, but the patient presented to be mildly paranoid, guarded was whispering to this typewriters functional tester because he did not want his roommate to hear what was the topic of the conversation. Insight and judgment seems to be fair. Impulses are well controlled. IMPRESSION: Rule out generalized anxiety disorder, rule out panic attacks. PLAN: Continue current management. Continue current medications. The patient has followup appointment at [facility]. The patient was advised to see psychiatrist before weaning himself off benzodiazepines. The patient poses no imminent danger to self or others. Has appointment at [facility], this typewriters functional tester will sign off. Should you have any questions, give me a call back. Thank you very much for letting me participate in care of your patient. Krista Saldana MD
--- NOTE | 2017-10-23 17:51 | HP ---
CHIEF COMPLAINT AND HISTORY OF PRESENT ILLNESS: This is a 61-year-old male who is coming into the hospital with high blood pressure. He was also having headaches. He had stopped his lisinopril because he said it aggravated him. The patient says he has been on amlodipine and that caused swelling in his legs. When he came into the hospital, he had a blood pressure of 200/110, repeat blood pressure was done and it was 185/52. He was also complaining of numbness in his arms. He feels that he gets agitated at times, but this morning denies headaches. He denies any chest pain. No fevers or chills. No nausea, no vomiting, no abdominal pain, no back pain, no dysuria or frequency, no nocturia. He is slow in giving his history, it takes quite some time in order to get his point across. He says he has been on multiple blood pressure medications in the past. He says he sees a psychiatrist and does not wish to go to 5th floor for Psychiatry. REVIEW OF SYSTEMS: All other review of symptoms are within normal limits except what was mentioned. ALLERGIES: CIPRO AND STEROIDS. HOME MEDICATIONS: Lipitor, Klonopin, folic acid, Prevacid, Synthroid. SOCIAL HISTORY: He does not smoke, drink or use drugs. PAST MEDICAL HISTORY: Hypertension, dyslipidemia, hypothyroidism. PAST SURGICAL HISTORY: Cataract surgery. FAMILY HISTORY: Noncontributory. PHYSICAL EXAMINATION VITAL SIGNS: Temperature is 98, pulse of 74, blood pressure is 145/79, respirations 20, O2 saturation 97%. GENERAL: The patient lying in bed, uncomfortable, and in no acute distress. HEENT: Atraumatic and normocephalic. Anicteric sclerae. Moist mucosa. [place] conjunctivae. No oral lesions. NECK: No JVD, anterior and posterior adenopathy, thyromegaly, or bruits. CARDIOVASCULAR: S1 and S2 regular. No murmur, rubs, or gallop. LUNGS: Clear to auscultation bilaterally. No wheezes, rales, or rhonchi. ABDOMEN: Bowel sounds are positive. Soft, nontender and nondistended. No hepatosplenomegaly. No rebound and no guarding EXTREMITIES: No cyanosis, clubbing, or edema. NEUROLOGIC: No facial asymmetry. Tongue is midline. No uvula deviation. Power is 5/5 upper extremity and lower extremity. Sensation intact in upper extremity and lower extremity. PSYCHIATRIC: He is awake, alert and oriented x3. No anxiety or depression. He has normal affect. GENITOURINARY: No CVA tenderness. VASCULAR: 2+ pulses in the carotid pulses and pedal pulses. SKIN: No erythema or nodules SPINE: Shows normal curvature. LABORATORY DATA: White count is 8.2, hemoglobin 13.4. INR is 1.05. Chemistry shows a creatinine is 0.8. Troponin is 0.01, albumin is 4.9. Chest x-ray done shows no active disease. EKG shows sinus rhythm at 93, QTc is 489, PVCs noted. ASSESSMENT: 1. Hypertension, uncontrolled. 2. Anxiety. 3. Hypothyroidism. PLAN: The patient is going to be admitted to the hospital. He was given hydralazine in the ER. He is also given Ativan for his anxiety. He was placed on Norvasc and lisinopril. His blood pressure is better, improved. He says the amlodipine can cause him to have lower extremity edema. I will place him on hydrochlorothiazide. The patient is on a heart-healthy diet. He is going to continue with Lipitor. I will get Psychiatry to evaluate him as well. Bayron Gil MD
== END 2017-10-23 16:47 | disposition home or self-care (01) | DRG 134 ==
LOC: ED 08:40 → ERH 13:37 → 2RNO 17:00
PROVIDERS: ADMIT Internal Medicine Nephrology; ATTEND Internal Medicine Nephrology
DX: I16.9 Hypertensive crisis, unspecified (principal); E03.9 Hypothyroidism, unspecified; E78.5 Hyperlipidemia, unspecified; F41.9 Anxiety disorder, unspecified; I10 Essential (primary) hypertension; Z91.14 Patient's other noncompliance with medication regimen

== ENCOUNTER 2017-10-24 12:11 | Observation (INO) | payer OTHER ==
[2017-10-24 12:12] VITALS: BMI 34.1
--- NOTE | 2017-10-24 13:01 | ED PDOC ---
Arrival/HPI - General Chief Complaint: Upper Extremity Problem/Injury Time Seen by Provider: 10/24/17 13:00 Historian: Patient, EMS - History of Present Illness Narrative History of Present Illness (Text): 10/24/17 13:00 pt p/w + sudden onset of b/l arm numbness/tingling (from forearm downwards) and dizziness/lightheadedness, not feeling well this morning, after he awoke and after he made breakfast for himself; pt states symptoms are intermittent, currently resolved; pt states NO LOC, no fever/chills/sweats, no cp/sob/ palpitations, no abd pain, no n/v, no urinary/bowel changes, no fall/trauma/ sick contact, no travel; pt states no vision changes, no slurr speech, no varela, no other complaints; pt is here for further eval pt denied focal weakness PCP: DR Vinson right hand dominate pt lives alone Time/Duration: 4-6 hours Symptom Onset: Sudden Symptom Course: Improving Activities at Onset: Rest Context: Home Past Medical History - Provider Review Nursing Documentation Reviewed: Yes - Travel History Have you recently traveled outside [place] w/in the past 3 mons?: No - Past History Past History: No Previous - Infectious Disease Hx of Infectious Diseases: None - Cardiac Hx Cardiac Disorders: Yes Hx Hypertension: Yes - Pulmonary Hx Respiratory Disorders: No - Neurological Hx Neurological Disorder: No - HEENT Hx HEENT Disorder: Yes Hx Cataracts: Yes (BILATERAL SURGERY) - Renal Hx Renal Disorder: No - Endocrine/Metabolic Hx Hypothyroidism: Yes - Hematological/Oncological Hx Blood Disorders: No - Integumentary Hx Dermatological Disorder: No - Musculoskeletal/Rheumatological Hx Musculoskeletal Disorders: Yes Hx Unsteady Gait: Yes (CANE) - Gastrointestinal Hx Gastrointestinal Disorders: No - Genitourinary/Gynecological Hx Genitourinary Disorders: No - Psychiatric Hx Psychophysiologic Disorder: Yes Hx Anxiety: Yes Hx Substance Use: No - Surgical History Hx Appendectomy: Yes Other/Comment: BILATERAL CATARACT SURGERY - Anesthesia Hx Anesthesia: No Family/Social History - Physician Review Nursing Documentation Reviewed: Yes Family/Social History: No Known Family HX Smoking Status: Never Smoked Hx Alcohol Use: No Hx Substance Use: No Hx Substance Use Treatment: No Allergies/Home Meds Allergies/Adverse Reactions: Allergies ciprofloxacin Allergy (Verified 10/24/17 12:20) RASH steriod Allergy (Uncoded 10/24/17 12:20) ANAPHYLAXIS Home Medications: Home Meds Medication Instructions Recorded Confirmed Atorvastatin [Lipitor] 20 mg PO DAILY 09/12/15 10/22/17 Clonazepam [Klonopin] 0.5 mg PO QID 09/12/15 10/22/17 Folic Acid 1 mg PO Q4 09/12/15 10/22/17 Lansoprazole [Prevacid] 30 mg PO DAILY 09/12/15 10/22/17 Levothyroxine [Synthroid] 100 mcg PO DAILY 09/12/15 10/22/17 Review of Systems - Review of Systems Constitutional: Fatigue Eyes: Normal. absent: Vision Changes ENT: Normal Respiratory: Normal. absent: SOB Cardiovascular: Normal. absent: Chest Pain Gastrointestinal: Normal. absent: Abdominal Pain, Nausea, Vomiting Genitourinary Male: Normal Musculoskeletal: Normal Skin: Normal Neurological: Dizziness, Other (b/l arm numbness/tingling, b/l arm weakness, but improved). absent: Headache, Speech Changes, Facial Droop Endocrine: Normal. absent: Diaphoresis Hemo/Lymphatic: Normal Psychiatric: Normal Physical Exam - Physical Exam Narrative Physical Exam (Text): 10/24/17 13:01 General: alert/awake, GCS = 15, oriented x 3, resting in bed, uncomfortable, cooperative, interactive; NAD Head: NC/AT EYE: PERRLA, EOMI, sclera anicteric, no nystagmus, no photophobia; visual field intact b/l Facial: WNL Oral: uvula/tongue are midline, no exudate/lesions, no drooling/stridor, no dysphonia; poor dentitions; mild dry oral mucosa NECK: intact ROM, no midline tenderness, no nuchal rigidity, no meningeal signs ; no step off Chest: CTA b/l, no w/r/r; no tachypenia, no accessory muscle use noted Chest Wall: no focal tenderness, no gross deformities, no crepitus, no lesions/ rashes noted Cardiac: +S1, +S2, no m/r/r, no tachycardia Abdominal: +BS, soft/nd/nt, well nourished patient; no masses/rebound/guarding/ rigidity; no alicea's sign, no mcburney's point tenderness Extremities: intact ROM, strength 5-/5 grossly intact in all limbs, neurovasc intact b/l; + ambulatory; reflex +2/2; mild b/l lower leg swelling, NON-pitting , NO suni's sign BACK: no step off, no midline tenderness, NO crepitus, no gross deformities noted; Intact ROM SKIN: cap refill < 1 sec, no ulcerations, no petechiae, no rashes NEURO: CNII-XII WNL, no facial asymmetries, no slurr speech, oriented x 3 NIH stroke scale ~ 0 Psych: normal insight, slight anxious affect; follows command with ease Vital Signs Reviewed: Yes Vital Signs Temp Pulse Resp BP Pulse Ox 10/24/17 12:39 98.7 F 81 18 125/90 99 Temperature: Afebrile Blood Pressure: Normal Pulse: Regular Respiratory Rate: Normal Appearance: Positive for: Well-Appearing, Non-Toxic, Uncomfortable. No: Ill- Appearing, Unkept Pain Distress: None Mental Status: Positive for: Alert and Oriented X 3 - Systems Exam Head: Present: Atraumatic, Normocephalic Medical Decision Making ED Course and Treatment: 10/24/17 13:00 Impression: dizziness/lightheadedness, arm numbness/tingling, mild weakness i have consider all the differential diagnosis regarding pt's chief medical complaints/clinical findings, including but are not limited to: r/o CVA vs TIA, weakness A/P: dizziness/lightheadedness, arm numbness/tingling, mild weakness - labs - iv - xray - Ct - supportive care - observe/reevaluation 230pm pt is currently resting in bed slightly anxious pt is asking if NS fluid can give him hypertension and is expressing concern pt opted to have the NS removed from him pt states mild b/l forearm numbness/tingling remains strength is intact b/l in all limbs pt is awaiting final disposition given pt's complaints, concern for TIA remains, will recommend patient for admission repeate NIH stroke scale ~ 0 10/24/17 15:29 Discussed case with , who was made aware and agrees with treatment plan and will accept patient to his services. Requests consultation with . pt is made aware of his medical results agrees with admission Re-evaluation Time: 15:42 Reassessment Condition: Improving,but remains with symptoms - Lab Interpretations Lab Results: 10/24/17 14:37 10/24/17 14:37 Lab Results 10/24/17 14:37: Sodium 133, Potassium 3.9, Chloride 93 L, Carbon Dioxide 26, Anion Gap 18, BUN 12, Creatinine 1.0, Est GFR ( Amer) > 60, Est GFR (Non- Af Amer) > 60, Random Glucose 117 H, Calcium 10.0, Total Bilirubin 0.6, AST 38, ALT 44, Alkaline Phosphatase 51, Total Creatine Kinase 325 H, CK-MB (CK-2) 2.4, CK-MB (CK-2) % Cancelled, Troponin I < 0.01, Total Protein 7.9, Albumin 4.7, Globulin 3.3, Albumin/Globulin Ratio 1.4 10/24/17 14:37: PT 11.7, INR 1.03, APTT 30.8 10/24/17 14:37: WBC 9.2, RBC 4.19, Hgb 13.2 L, Hct 36.8 L, MCV 87.8, MCH 31.5, MCHC 35.9, RDW 12.8, Plt Count 330, MPV 9.1, Gran % 67.8, Lymph % (Auto) 23.1, Peach % (Auto) 8.3 H, Eos % (Auto) 0.7 L, Baso % (Auto) 0.1, Gran # 6.25, Lymph # (Auto) 2.1, Peach # (Auto) 0.8 H, Eos # (Auto) 0.1, Baso # (Auto) 0.01 I have reviewed the lab results: Yes Interpretation: All labs normal - RAD Interpretation Narrative RAD Interpretations (Text): Report Date : 10/24/2017 13:57:48 PROCEDURE: CT HEAD WITHOUT CONTRAST. Dictator : Mikel Grossman MD IMPRESSION: No acute findings Report Date : 10/24/2017 14:09:03 Procedure: Chest xray Dictator : Mikel Grossman MD IMPRESSION: No active disease. Radiology Orders: 10/24/17 13:01 HEAD W/O CONTRAST [CT] Stat CHEST TWO VIEWS (PA/LAT) [RAD] Stat Building Maintenance Supervisor: ED Physician, Radiologist - EKG Interpretation EKG Interpretation (Text): 10/24/17 15:44 Sinus rhythm at 80 bpm, normal axis, + ectopy, inverted T in leads III, no st changes, min voltage criteria LVH; BORDERLINE EKG; unchanged compare with old ekg 07/2017 Interpreted by ED Physician: Yes Type: 12 lead EKG Comparison: Similar to previous EKG - Medication Orders Current Medication Orders: Sodium Chloride (Sodium Chloride 0.9%) 1,000 mls @ 100 mls/hr IV .Q10H ACACIA Discontinued Medications Aspirin (Aspirin) 325 mg PO STAT STA Stop: 10/24/17 13:02 Last Admin: 10/24/17 14:43 Dose: Not Given Non-Admin Reason: Patient Refused Lorazepam (Ativan) 1 mg IVP ONCE ONE PRN Reason: Protocol Stop: 10/24/17 15:28 NIHSS Stroke Scale 3 - Date/Time Evaluation Performed Date Performed: 10/24/17 Time Performed: 13:03 When Was NIHSS Performed: Baseline - How Severe is the Stroke Level of Consciousness: 0=Alert LOC to Questions: 0=Both comments correct LOC to commands: 0=Obeys both correctly Best Gaze: 0=Normal Visual: 0=No visual loss Facial: 0=Normal Motor Arm - Left: 0=No drift Motor Arm - Right: 0=No drift Motor Leg - Left: 0=No drift Motor Leg - Right: 0=No drift Limb Ataxia: 0=Absent Sensory: 0=Normal Best Language: 0=No aphasia Dysarthia: 0=Normal articulation Extinction & Inattention (Neglect): 0=Normal, no object Score: 0 - Scribe Statement The provider has reviewed the documentation as recorded by the Veritoibkamar Crowley Provider Scribe Attestation: All medical record entries made by the Veritoibkamar were at my direction and personally dictated by me. I have reviewed the chart and agree that the record accurately reflects my personal performance of the history, physical exam, medical decision making, and the department course for this patient. I have also personally directed, reviewed, and agree with the discharge instructions and disposition. Disposition/Present on Arrival - Present on Arrival Any Indicators Present on Arrival: No History of DVT/PE: No History of Uncontrolled Diabetes: No Urinary Catheter: No History of Decub. Ulcer: No History Surgical Site Infection Following: None - Disposition Have Diagnosis and Disposition been Completed?: Yes Diagnosis: Numbness and tingling in left arm, Numbness and tingling of right arm, Dizziness, TIA (transient ischemic attack), Weakness, Fatigue Disposition: HOSPITALIZED Disposition Time: 15:33 Patient Plan: Admission, Telemetry Condition: STABLE Discharge Instructions (ExitCare): Weakness (ED) Forms: [facility] (Congolese)
--- NOTE | 2017-10-24 13:59 | CT ---
PROCEDURE: CT HEAD WITHOUT CONTRAST. HISTORY: dizziness/arm numbness/tingling COMPARISON: 07/22/2017 TECHNIQUE: Axial computed tomography images were obtained through the head/brain without intravenous contrast. Radiation dose: Total exam DLP = 984 mGy-cm. This CT exam was performed using one or more of the following dose reduction techniques: Automated exposure control, adjustment of the mA and/or kV according to patient size, and/or use of iterative reconstruction technique. FINDINGS: HEMORRHAGE: No intracranial hemorrhage. BRAIN: No mass effect or edema. No atrophy or chronic microvascular ischemic changes. VENTRICLES: Unremarkable. No hydrocephalus. CALVARIUM: Unremarkable. PARANASAL SINUSES: Unremarkable as visualized. No significant inflammatory changes. MASTOID AIR CELLS: Unremarkable as visualized. No inflammatory changes. OTHER FINDINGS: None. IMPRESSION: No acute findings
--- NOTE | 2017-10-24 14:10 | RAD ---
HISTORY: dizziness/arm numbness/tingling COMPARISON: 10/22/2017 TECHNIQUE: Chest PA and lateral FINDINGS: LUNGS: No active pulmonary disease. PLEURA: No significant pleural effusion identified. No pneumothorax apparent. CARDIOVASCULAR: Normal. OSSEOUS STRUCTURES: No significant abnormalities. VISUALIZED UPPER ABDOMEN: Normal. OTHER FINDINGS: None. IMPRESSION: No active disease.
[2017-10-24 14:57] LABS: BASO # 0.01 K/mm3 (0.0-2.0); BASO % 0.1 % (0.0-3.0); EOS # 0.1 (0.0-0.7); EOS % 0.7 % (1.5-5.0); GRAN # 6.25 (1.4-6.5); GRAN % 67.8 % (50.0-68.0); HEMOGLOBIN 13.2 g/dL (14.0-18.0); LYMPH # 2.1 (1.2-3.4); LYMPH % 23.1 % (22.0-35.0); MEAN CELL VOLUME 87.8 fl (80.0-105.0); MEAN CORPUSCULAR HEMOGLOBIN 31.5 pg (25.0-35.0); MEAN CORPUSCULAR HGB CONC 35.9 g/dl (31.0-37.0); MEAN PLATELET VOLUME 9.1 fl (7.0-11.0); MONO # 0.8 (0.1-0.6); MONO % 8.3 % (1.0-6.0); RBC 4.19 10^6/uL (3.5-6.1); RED CELL DISTRIBUTION WIDTH 12.8 % (11.5-14.5); WHITE BLOOD COUNT 9.2 10^3/ul (4.5-11.0)
[2017-10-24 15:11] LABS: TROPONIN I < 0.01 ng/mL
[2017-10-24 15:13] LABS: ALB/GLOB RATIO 1.4 (1.1-1.8); ALBUMIN 4.7 g/dL (3.0-4.8); ALT/SGPT 44 U/L (7-56); AST/SGOT 38 U/L (17-59); BLOOD UREA NITROGEN 12 mg/dL (7-21); GFR AFRICAN-AMERICAN > 60; GFR NON-AFRICAN AMERICAN > 60
[2017-10-24 15:19] LABS: CK-MB 2.4 ng/mL (0.0-3.6)
[2017-10-24 15:27] LABS: INR 1.03 (0.93-1.08); PROTHROMBIN TIME 11.7 SECONDS (9.4-12.5)
[2017-10-24 15:28] LABS: PARTIAL THROMBOPLASTIN TIME 30.8 Seconds (25.1-36.5)
[2017-10-24] MEDS: Sodium Chloride 0.9% 1,000 ML IV SCH (15:40)
[2017-10-24 17:08] VITALS: RESP 20
[2017-10-24 17:11] LABS: URINE BILIRUBIN NEGATIVE (NEGATIVE); URINE BLOOD TRACE-INTACT (NEGATIVE); URINE GLUCOSE (UA) NEGATIVE (NEGATIVE); URINE LEUKOCYTE ESTERASE NEGATIVE Leu/uL (NEGATIVE); URINE PROTEIN NEGATIVE mg/dL (<30 mg/dL); URINE UROBILINOGEN 0.2 E.U./dL (<1 E.U./dL)
[2017-10-24 17:14] LABS: URINE APPEARANCE CLEAR (CLEAR); URINE COLOR YELLOW (YELLOW)
[2017-10-24 17:19] LABS: URINE BACTERIA FEW (NEG); URINE WBC 0 - 2 /hpf (0-6)
--- NOTE | 2017-10-24 18:56 | CON ---
DATE: 10/24/2017 NEUROLOGY CONSULT CHIEF COMPLAINT: Bilateral arm numbness and tingling. HISTORY OF PRESENT ILLNESS: This is a 61-year-old man with a history of generalized anxiety disorder, on Klonopin; hypertension; hypothyroidism, on levothyroxine; who came in for a sudden onset of bilateral arm tingling and numbness from the forearm downwards. In addition, mentioned that his right arm is heavy, but tingling and numbness again migrated to the left forearm. Currently, he is no longer exhibiting any symptoms. He is also lightheaded and had some abdominal pain and few days prior, he had some diarrhea. Currently, his neuro exam is nonfocal, NIH stroke scale is 0. CAT scan of the head showed no acute intracranial abnormalities. He does not want to take aspirin, he said "it kills people." Therefore, we will place him only on Plavix 75 p.o. daily and atorvastatin 20 at this time. No focal weakness at this time. PAST MEDICAL HISTORY: As above. SOCIAL HISTORY: No illicit drug use, smoking, or EtOH abuse. FAMILY HISTORY: Noncontributory. ALLERGIES: ALLERGIC TO CIPROFLOXACIN ADN STEROIDS. MEDICATIONS: Reviewed by nurses' reconciliation sheet. REVIEW OF SYSTEMS: A 14-point review of systems is negative except in the HPI. PHYSICAL EXAMINATION: VITAL SIGNS: Temperature is 98.1, pulse rate of 86, blood pressure 155/99, respiratory rate of 20, and oxygen saturation 98% by room air. GENERAL: The patient is sitting up in bed, in no acute distress. HEENT: Head is atraumatic, normocephalic. PERRLA. Extraocular muscles intact. NECK: Supple. No JVD. No adenopathy noted. LUNGS: Clear to auscultation. No adventitious sounds. HEART: S1 and S2. Normal rate and rhythm. No murmur, rubs, or gallops. ABDOMEN: Soft, nontender, and nondistended. Bowel sounds are present. EXTREMITIES: No clubbing or cyanosis. Peripheral pulses 2+ felt bilaterally. NEUROLOGIC: The patient is alert and oriented to person, place, month, and year. Speech is fluent without any errors. Cranial nerves II through XII intact. Motor: Moves all extremities equally. No pronator drift seen. Sensory: Light touch, pinprick, proprioception, and vibration are intact. DTRs are 2+ throughout and 1 at both knees and ankles. Coordination: [id number] intact. No dysmetria noted. LABORATORY DATA: Sodium is 133, potassium 3.9, chloride 93, carbon dioxide 26, BUN of 12, creatinine 1.1. Random glucose 117. ASSESSMENT AND PLAN: This is a 61-year-old man with history of hypertension; generalized anxiety disorder, on Klonopin; as well as hypothyroidism, on levothyroxine; who came in with questionable transient tingling and numbness of the right arm, which migrated to the left forearm and found to have mildly elevated blood pressures. His symptoms are unlikely a transient ischemic attack since it is in bilateral hands, mostly likely hypertensive urgency, which superimposed on underlying generalized anxiety disorder. At this time, would recommend; 1. Plavix, since the patient does not like aspirin, 75 mg p.o. daily in addition to atorvastatin 20 mg. 2. Monitor his blood pressure and keep systolic blood pressure between 130s to 140s and diastolics 70s to 80s and adjust his blood pressure medications. 3. PT evaluation and he is currently stable from my standpoint. No MRI needed due to normal neuro exam. Thank you for this consult. Dajuan Melendez MD
[2017-10-24] MEDS ORDERED: Pneumococcal 23-Valent Vaccine IM ONE (19:34)
[2017-10-25] MEDS: Sodium Chloride 0.9% 1,000 ML IV SCH ×2 (01:16→13:05)
[2017-10-25] MEDS ORDERED: Magnesium Sulfate 1 gm in D5W 1 GM/100 ML BAG IVPB ONE (06:24)
[2017-10-25 07:29] LABS: HDL CHOLESTEROL 41 mg/dL (29-60)
[2017-10-25 07:40] LABS: LDL CHOLESTEROL 131 mg/dL (0-129)
[2017-10-25 07:56] LABS: FREE T4 0.95 ng/dL (0.78-2.19)
--- NOTE | 2017-10-25 08:56 | CP.PCM.CON ---
History of Present Illness - History of Present Illness History of Present Illness: Awake, alert, ambulatory,no distress,denies chest pain, denies arm numbness Reason for consultation: Cardiac evaluation, bilateral arm numbness, dizziness/ lightheadedness,hypertension Brief history of present illness: A 61 year old male who came in to the ER due to complaints of bilateral arm numbness with dizziness and lightheadedness. Denies loss of consciousness. Claimed to be the 3rd time it happened. Symptoms easily get resolved. He got scared as this is the 3rd time happened thus seek medical treatment. History of hypertension,hypothyroidism, anxiety, unsteady gait uses cane. bilateral cataract surgery. Seen and examined by me and Dr. Russell Review of Systems - Constitutional Constitutional: As Per HPI - EENT Additional comments: bilateral cataract surgery - Cardiovascular Cardiovascular: Lightheadedness - Respiratory Additional comments: denies any problems - Gastrointestinal Additional comments: denies nausea/vomiting - Genitourinary Additional comments: continent - Neurological Additional comments: numbness bilateral arms - Psychiatric Psychiatric: Anxiety - Endocrine Additional Comments: hypothyroidism Past Patient History - Infectious Disease Hx of Infectious Diseases: None - Past Social History Smoking Status: Never Smoked - CARDIAC Hx Cardiac Disorders: Yes Hx Hypertension: Yes - PULMONARY Hx Respiratory Disorders: No - NEUROLOGICAL Hx Neurological Disorder: Yes Hx Dizziness: Yes - HEENT Hx HEENT Problems: Yes Hx Cataracts: Yes (BILATERAL SURGERY) - RENAL Hx Chronic Kidney Disease: No - ENDOCRINE/METABOLIC Hx Hypothyroidism: Yes - HEMATOLOGICAL/ONCOLOGICAL Hx Blood Disorders: No - INTEGUMENTARY Hx Dermatological Problems: No - MUSCULOSKELETAL/RHEUMATOLOGICAL Hx Musculoskeletal Disorders: Yes Hx Falls: No Hx Unsteady Gait: Yes (CANE) - GASTROINTESTINAL Hx Gastrointestinal Disorders: No - GENITOURINARY/GYNECOLOGICAL Hx Genitourinary Disorders: No - PSYCHIATRIC Hx Psychophysiologic Disorder: Yes Hx Anxiety: Yes Hx Substance Use: No - SURGICAL HISTORY Hx Surgeries: Yes Hx Appendectomy: Yes Other/Comment: BILATERAL CATARACT SURGERY - ANESTHESIA Hx Anesthesia: No Meds Allergies/Adverse Reactions: Allergies Allergy/AdvReac Type Severity Reaction Status Date / Time ciprofloxacin Allergy RASH Verified 10/24/17 17:41 steriod Allergy ANAPHYLAXIS Uncoded 10/24/17 17:41 - Medications Medications: Current Medications Atorvastatin Calcium (Lipitor) 20 mg PO DAILY ACACIA Clonazepam (Klonopin) 0.5 mg PO QID ACACIA PRN Reason: Protocol Last Admin: 10/24/17 21:42 Dose: 0.5 mg Folic Acid (Folic Acid) 1 mg PO DAILY [facility] Hydrochlorothiazide (Hydrodiuril) 25 mg PO DAILY [facility] Sodium Chloride (Sodium Chloride 0.9%) 1,000 mls @ 100 mls/hr IV .Q10H ACACIA Last Admin: 10/25/17 01:16 Dose: Not Given Levothyroxine Sodium (Synthroid) 100 mcg PO DAILY [facility] Lisinopril (Zestril) 20 mg PO DAILY [facility]AC[facility] Pantoprazole Sodium (Protonix Ec Tab) 40 mg PO DAILY ACACIA Physical Exam - Constitutional Appears: No Acute Distress - Head Exam Head Exam: NORMOCEPHALIC - Eye Exam Eye Exam: Normal appearance - ENT Exam ENT Exam: Mucous Membranes Moist - Neck Exam Neck exam: Positive for: Full Rom - Respiratory Exam Respiratory Exam: Clear to Auscultation Bilateral, NORMAL BREATHING PATTERN - Cardiovascular Exam Cardiovascular Exam: +S1, +S2 - GI/Abdominal Exam GI & Abdominal Exam: Normal Bowel Sounds, Soft - Exam Additional comments: continent - Extremities Exam Extremities exam: Positive for: normal capillary refill - Neurological Exam Neurological exam: Alert, Oriented x3 - Psychiatric Exam Psychiatric exam: Normal Affect, Normal Mood - Skin Skin Exam: Intact, Normal Color, Warm Results - Vital Signs Recent Vital Signs: Last Vital Signs Temp 98.1 F 10/24/17 19:08 Pulse 56 L 10/25/17 05:07 Resp 20 10/24/17 19:08 BP 155/99 H 10/24/17 19:08 Pulse Ox 100 10/24/17 18:00 - Labs Result Diagrams: 10/24/17 14:37 10/24/17 14:37 Labs: Laboratory Results - last 24 hr 10/24/17 10/25/17 10/25/17 16:20 06:30 07:00 Triglycerides 122 Cholesterol 207 H LDL Cholesterol Direct 131 H HDL Cholesterol 41 Free T4 0.95 TSH 3rd Generation 8.23 H Urine Color Yellow Urine Appearance Clear Urine pH 6.0 Ur Specific [place] <= 1.005 Urine Protein Negative Urine Glucose (UA) Negative Urine Ketones Negative Urine Blood Trace-intact H Urine Nitrate Negative Urine Bilirubin Negative Urine Urobilinogen 0.2 Ur Leukocyte Esterase Negative Urine RBC 1 - 3 Urine WBC 0 - 2 Ur Epithelial Cells None Urine Bacteria Few Assessment & Plan - Assessment and Plan (Free Text) Assessment: A 61 year old male who came in to the ER due to complaints of bilateral arm numbness with dizziness and lightheadedness. Denies loss of consciousness. Claimed to be the 3rd time it happened. Symptoms easily get resolved. He got scared as this is the 3rd time happened thus seek medical treatment. History of hypertension,hypothyroidism, anxiety, unsteady gait uses cane. bilateral cataract surgery. Review of previous cardiac work up: 09/12/15 ECHO- Biatrial enlargement,normal systolic function, LVEF 52%,moderate TR, Severe MR, posterior mitral valve prolapse Plan: Denies numbness and tingling of arms now Possible TIA Carotid studies to evaluate for disease/stenosis Neuro on consult Will start Plavix 75 mg daily, refuse Aspirin ECHO to evaluate LV function EKG showed normal sinus rythm- 80/min PVC's,LVH, NSSTW changes On Lipitor 20 mg daily, Hydrodiuril 25 mg daily Lisinopril 20 mg daily,Synthroid 100 mcg daily Continue current management Will follow up Plan and treatment discussed with Dr. Russell Thank you Dr. Lozada for the opportunity to take care of Mr. Trevor Sosa - Date & Time Date: 10/25/17 Time: 07:15
[2017-10-25] MEDS: Pantoprazole 40 mg EC Tab PO SCH (09:15)
--- NOTE | 2017-10-25 09:50 | CARD ---
APPROVED REPORT EKG Measurement Heart [id number] <Conclusion> Sinus rhythm PVCs LVH NSSTW changes
[2017-10-25] MEDS ORDERED: Levothyroxine 125 MCG TAB PO ONE (10:00)
[2017-10-25] MEDS ORDERED: Levothyroxine 100 MCG TAB PO SCH ×2 (10:00)
[2017-10-25 16:38] VITALS: TEMP 98.1
[2017-10-26 07:11] VITALS: O2SAT 95
[2017-10-26 07:16] LABS: BASO # 0.02 K/mm3 (0.0-2.0); BASO % 0.2 % (0.0-3.0); EOS # 0.2 (0.0-0.7); EOS % 2.4 % (1.5-5.0); GRAN # 5.05 (1.4-6.5); GRAN % 60.8 % (50.0-68.0); HEMOGLOBIN 12.2 g/dL (14.0-18.0); LYMPH # 2.1 (1.2-3.4); MEAN CELL VOLUME 87.8 fl (80.0-105.0); MEAN CORPUSCULAR HEMOGLOBIN 30.9 pg (25.0-35.0); MEAN CORPUSCULAR HGB CONC 35.2 g/dl (31.0-37.0); MEAN PLATELET VOLUME 8.8 fl (7.0-11.0); MONO % 11.6 % (1.0-6.0); RBC 3.95 10^6/uL (3.5-6.1); RED CELL DISTRIBUTION WIDTH 12.6 % (11.5-14.5); WHITE BLOOD COUNT 8.3 10^3/ul (4.5-11.0)
[2017-10-26 07:17] LABS: ALB/GLOB RATIO 1.3 (1.1-1.8); ALBUMIN 4.3 g/dL (3.0-4.8); ALT/SGPT 39 U/L (7-56); AST/SGOT 39 U/L (17-59); BLOOD UREA NITROGEN 14 mg/dL (7-21); CALCIUM 9.1 mg/dL (8.4-10.5); GFR AFRICAN-AMERICAN > 60; GFR NON-AFRICAN AMERICAN > 60
[2017-10-26] MEDS ORDERED: Levothyroxine 125 MCG TAB PO SCH (07:30)
--- NOTE | 2017-10-26 08:24 | CP.PCM.PN ---
Subjective - Date & Time of Evaluation Date of Evaluation: 10/26/17 Time of Evaluation: 06:45 - Subjective Subjective: Awake, alert, ambulatory,no distress,denies chest pain, denies arm numbness Reason for consultation: Cardiac evaluation, bilateral arm numbness, dizziness/ lightheadedness,hypertension,History of hypertension,hypothyroidism, anxiety, unsteady gait uses cane. bilateral cataract surgery. Seen and examined by me and Dr. Russell Objective - Vital Signs/Intake and Output Vital Signs (last 24 hours): Temp Pulse Resp BP Pulse Ox 98.1 F 61 20 109/59 L 95 10/26/17 06:00 10/26/17 06:00 10/26/17 06:00 10/26/17 06:00 10/26/17 06:00 Intake and Output: 10/26/17 10/26/17 06:59 18:59 Intake Total 480 Output Total 0 Balance 480 - Medications Medications: Current Medications Atorvastatin Calcium (Lipitor) 20 mg PO DAILY [facility] Last Admin: 10/25/17 09:12 Dose: 20 mg Clonazepam (Klonopin) 0.5 mg PO QID [facility] PRN Reason: Protocol Last Admin: 10/25/17 21:54 Dose: 0.5 mg Clopidogrel Bisulfate (Plavix) 75 mg PO DAILY [facility] Last Admin: 10/25/17 14:06 Dose: Not Given Docusate Sodium (Colace) 200 mg PO DAILY [facility] Last Admin: 10/25/17 17:38 Dose: 200 mg Folic Acid (Folic Acid) 1 mg PO DAILY [facility] Last Admin: 10/25/17 09:12 Dose: 1 mg Hydrochlorothiazide (Hydrodiuril) 25 mg PO DAILY [facility] Last Admin: 10/25/17 09:12 Dose: 25 mg Levothyroxine Sodium (Synthroid) 125 mcg PO ACB [facility] Lisinopril (Zestril) 30 mg PO DAILY [facility] Pantoprazole Sodium (Protonix Ec Tab) 40 mg PO DAILY [facility] Last Admin: 10/25/17 09:15 Dose: 40 mg - Labs Labs: 10/26/17 06:15 10/26/17 06:15 PT 11.7 SECONDS (9.4-12.5) 10/24/17 14:37 INR 1.03 (0.93-1.08) 10/24/17 14:37 APTT 30.8 Seconds (25.1-36.5) 10/24/17 14:37 - Constitutional Appears: No Acute Distress - Head Exam Head Exam: NORMOCEPHALIC - Eye Exam Eye Exam: Normal appearance - ENT Exam ENT Exam: Mucous Membranes Moist - Respiratory Exam Respiratory Exam: Clear to Ausculation Bilateral - Cardiovascular Exam Cardiovascular Exam: +S1, +S2 - GI/Abdominal Exam GI & Abdominal Exam: Soft, Normal Bowel Sounds - Extremities Exam Extremities Exam: Normal Capillary Refill - Neurological Exam Neurological Exam: Alert, Oriented x3 - Psychiatric Exam Psychiatric exam: Normal Affect, Normal Mood - Skin Skin Exam: Intact, Normal Color, Warm Assessment and Plan - Assessment and Plan (Free Text) Assessment: A 61 year old male who came in to the ER due to complaints of bilateral arm numbness with dizziness and lightheadedness. Denies loss of consciousness. Claimed to be the 3rd time it happened. Symptoms easily get resolved. He got scared as this is the 3rd time happened thus seek medical treatment. History of hypertension,hypothyroidism, anxiety, unsteady gait uses cane. bilateral cataract surgery.09/12/15 ECHO- Biatrial enlargement,normal systolic function, LVEF 52%,moderate TR, Severe MR, posterior mitral valve prolapse.10/24/17 EKG showed normal sinus rythm- 80/min, PVC's,LVH, NSSTW changes. Plan: ECHO and carotid US done yesterday awaiting results Possible TIA Neuro on consult On Lipitor 20 mg daily, Hydrodiuril 25 mg daily Lisinopril 20 mg daily,Synthroid 100 mcg daily Continue current management Continue current medications Will follow up Plan and treatment discussed with Dr. Russell
[2017-10-26] MEDS: Pantoprazole 40 mg EC Tab PO SCH (09:18)
[2017-10-26 09:23] VITALS: BP 122/64
--- NOTE | 2017-10-26 09:37 | CARD ---
APPROVED REPORT EXAM: Two-dimensional and M-mode echocardiogram with Doppler and color Doppler. Other Information Quality : AverageRhythm : INDICATION Stroke, HBP 2D DIMENSIONS IVSd1.0 (0.7-1.1cm)LVDd5.2 (3.9-5.9cm) PWd1.1 (0.7-1.1cm)LVDs3.4 (2.5-4.0cm) FS (%) 34.6 %LVEF (%)63.0 (>50%) M-Mode DIMENSIONS Left Atrium (MM)4.30 (2.5-4.0cm)Aortic Root3.40 (2.2-3.7cm) Aortic Cusp Exc.2.10 (1.5-2.0cm) Aortic Valve AoV Peak Adicdpic634.0cm/s Mitral Valve MV E Etciyzrr423.0cm/sMV E Peak Gr.135mmHgMV A Vtsawkti89.8cm/s E/A ratio2.0 TDI Lateral E' Peak V11.80cm/sMedial E' Peak V7.90cm/sE/Lateral E'9.6 E/Medial E'14.3 Tricuspid Valve TR Peak Hshvolbp365fo/sRAP [id number] Peak Gr.28mmHg [id number] LEFT VENTRICLE The left ventricle is normal size. There is normal left ventricular wall thickness. The left ventricular function is normal. The left ventricular ejection fraction is within the normal range. There is normal LV segmental wall motion. RIGHT VENTRICLE The right ventricle is normal size. ATRIA The left atrium is mildly dilated. The right atrium size is normal. The interatrial septum is intact with no evidence for an atrial septal defect. AORTIC VALVE The aortic valve is normal in structure. MITRAL VALVE The mitral valve is normal in structure. Mitral regurgitation is mild. TRICUSPID VALVE The tricuspid valve is normal in structure. There is trace tricuspid regurgitation. PULMONIC VALVE The pulmonic valve is not well visualized. GREAT VESSELS The aortic root is normal in size. PERICARDIAL EFFUSION There is no pericardial effusion. <Conclusion> The left ventricle is normal size. There is normal left ventricular wall thickness. The left ventricular ejection fraction is within the normal range. The left ventricular function is normal. Mitral regurgitation is mild.
[2017-10-26] MEDS ORDERED: Potassium Chloride 20 mEq ER Tab PO ONE (12:08)
[2017-10-26 15:25] VITALS: PULSE 89
--- NOTE | 2017-10-26 18:28 | US ---
PROCEDURE: Bilateral carotid artery duplex ultrasound HISTORY: Carotid stenosis PHYSICIAN(S): Gómez Enriquez MD. TECHNIQUE: Duplex sonography and color-flow Doppler were used to evaluate the carotid bifurcations and limited segments of the vertebral arteries bilaterally. The exam is limited by body habitus FINDINGS: There is mild smooth heterogeneous plaque noted at the carotid bifurcations bilaterally. The peak systolic velocity in the proximal right internal carotid artery is 110 cm/sec. This corresponds to a 20 to 39% proximal right ICA stenosis. Normal systolic velocities are noted in the proximal right external carotid artery. There is antegrade flow in the right vertebral artery. The peak systolic velocity in the proximal left internal carotid artery is 89 cm/sec. This corresponds to a 20 to 39% proximal left ICA stenosis. Normal systolic velocities are noted in the proximal left external carotid artery. There is antegrade flow in the left vertebral artery. IMPRESSION: 1. Bilateral 20-39% proximal ICA stenoses. 2. Antegrade flow in both vertebral arteries.
--- NOTE | 2017-10-27 06:21 | DS ---
HISTORY OF PRESENT ILLNESS: Patient is 61 years old, seen and examined, complained of bilateral forearm numbness. No weakness noted. He is ambulating with no difficulty. PHYSICAL EXAMINATION: GENERAL: He is awake, alert, oriented, communicative. VITAL SIGNS: He is afebrile, pulse 72, respirations 20, blood pressure 122/64. LUNGS: Bilateral good airflow. No rhonchi or crackle. HEART: S1 and S2 audible. ABDOMEN: Soft and nontender. No rebound. No guarding. NEUROLOGIC: He is awake, alert, oriented, communicative. LABORATORY EXAM: WBC is 8.3, hemoglobin 12, hematocrit 34.7, platelets of 327. Chemistry: Sodium 130, potassium 3.8, chloride 91, CO2 28, BUN 14, creatinine , blood sugar 115. He had a carotid Doppler done that is still pending. ASSESSMENT: 1. Bilateral forearm numbness, etiology unclear. Does not fit the criteria to have a stroke. 2. Hypertension. 3. Anxiety disorder. 4. Hypothyroidism. PLAN: At this point, there is no significant clinical evidence that he has stroke. Probably it is anxiety disorder. Start him on gabapentin. He can be discharged later on today if appropriate with the neurologist and he will follow with . Derick Pineda MD
[2017-10-27] MEDS ORDERED: Potassium Chloride 20 mEq ER Tab PO SCH (08:00)
--- NOTE | 2017-10-27 08:45 | HP ---
HISTORY OF PRESENT ILLNESS: Patient is a 61-year-old white male who was seen by Dr. Vinson. He states he was having numbness and weakness in his both arms. He thought he is having stroke. He went to see Dr. Vinson . However, he was told that if condition got worse, he should go to emergency room for further evaluation. Patient denied any chest pain. No history of shortness of breath. No history of nausea or vomiting. No history of fall. Patient is having intermittently feeling of numbness in both hands. Complains of feeling lightheaded and dizzy at times. Denies any history of loss of consciousness. Patient states initially the symptom used to get resolve, not lasted longer. PAST MEDICAL HISTORY: Significant for: 1. Hypothyroidism. 2. Gastritis. 3. Hyperlipidemia. 4. Hypertension. Patient was recently admitted and discharged by emergency room. ALLERGIES: PATIENT IS ALLERGIC TO CIPRO AND STEROIDS. MEDICATIONS AT HOME: He is on Lipitor, Klonopin, folic acid, Prevacid, and Synthroid. SOCIAL HISTORY: Lives by himself. Denies smoking, drinking or alcohol use. PAST SURGICAL HISTORY: Significant for cataract extraction. PHYSICAL EXAMINATION: GENERAL: On admission, he is awake, alert, oriented, talkative. VITAL SIGNS: He is afebrile. Pulse 72, respirations 20, blood pressure 127/90. LUNGS: Bilateral good airflow. No rhonchi or crackle. HEART: S1 and S2 audible. ABDOMEN: Soft and nontender. No rebound. No guarding. NEUROLOGIC: Patient is awake, alert, oriented. Moves all extremities. LABORATORY DATA: WBC 9.2 , hemoglobin 13.2, hematocrit 36.8, platelet 230. PT 11.7, INR 1.03. Chemistry, sodium 133, potassium 3.9, chloride 93, CO2 of 26, BUN 12, creatinine 1, blood sugar 117. LDL is 131, total cholesterol . ASSESSMENT AND PLAN: 1. Bilateral arm numbness, doubt have transient ischemic attack or cerebrovascular accident. 2. Hypothyroidism. 3. Hypertension. 4. Hyperlipidemia. 5. Anxiety disorder. PLAN: We will resume patient's usual medication. Follow up with Doppler, if negative, will be discharged home in the a.m. Derick Pineda MD [facility] # [id number]
== END 2017-10-26 16:19 | disposition home or self-care (01) ==
LOC: ED 12:11 → INTOOBSV 15:32 → ERH 15:32 → 3RSO 17:17
PROVIDERS: ADMIT Internal Medicine Nephrology; ATTEND Internal Medicine Nephrology
DX: I16.0 Hypertensive urgency (principal); F41.1 Generalized anxiety disorder; I10 Essential (primary) hypertension; I08.1 Rheumatic disorders of both mitral and tricuspid valves; E03.9 Hypothyroidism, unspecified; E78.5 Hyperlipidemia, unspecified; R26.81 Unsteadiness on feet; R20.0 Anesthesia of skin
CPT/HCPCS: 36415; 70450; 71046; 80053; 80061; 81001; 82550; 82553; 83735; 84439; 84443; 84484; 85025; 85610; 85730; 93005; 93306; 93880; 96374; 99285; G0378; J2060; J3475

== ENCOUNTER 2017-11-19 12:21 | Observation (INO) | payer OTHER ==
--- NOTE | 2017-11-19 13:09 | ED PDOC ---
Arrival/HPI - General Chief Complaint: Lower Extremity Problem/Injury Time Seen by Provider: 11/19/17 12:26 Historian: Patient - History of Present Illness Narrative History of Present Illness (Text): 11/19/17 13:10 Patient is a 61 year old male whose past medical history includes hypertension, and hypothyroidism, who was brought to the Emergency department by EMS for slurred speech, left sided facial numbness, and bilateral lower extremity weakness, which occurred approximately 1.5-2hours ago. He states that he was last well 2 hours ago prior to the onset of his symptoms. Patient reports that he was awake and sitting when his facial numbness started and 6 minutes later he started experiencing bilateral lower extremity weakness. His symptoms prompted him to call EMS. He was also experiencing upper extremity numbness left worse than right, but notes that he has experienced this symptom before, which was believed to be neuropathy. He explains that he hasn't experienced left facial numbness and lower extremity weakness prior to today. He currently states that his arm numbness is improving, and his facial numbness and bilateral lower extremity weakness has resolved. Patient denies fevers, chills , chest pain, shortness of breath, back pain, neck pain, headache, dizziness, or any other complaint. PMD: Time/Duration: 1-3 hours Symptom Onset: Sudden Symptom Course: Improving Context: Home Past Medical History - Provider Review Nursing Documentation Reviewed: Yes - Past History Past History: No Previous - Infectious Disease Hx of Infectious Diseases: None - Cardiac Hx Cardiac Disorders: Yes Hx Hypertension: Yes - Pulmonary Hx Respiratory Disorders: No - Neurological Hx Neurological Disorder: Yes Hx Dizziness: Yes - HEENT Hx HEENT Disorder: Yes Hx Cataracts: Yes (BILATERAL SURGERY) - Renal Hx Renal Disorder: No - Endocrine/Metabolic Hx Hypothyroidism: Yes - Hematological/Oncological Hx Blood Disorders: No - Integumentary Hx Dermatological Disorder: No - Musculoskeletal/Rheumatological Hx Musculoskeletal Disorders: Yes Hx Unsteady Gait: Yes (CANE) - Gastrointestinal Hx Gastrointestinal Disorders: No - Genitourinary/Gynecological Hx Genitourinary Disorders: No - Psychiatric Hx Psychophysiologic Disorder: Yes Hx Anxiety: Yes Hx Substance Use: No - Surgical History Hx Appendectomy: Yes Other/Comment: BILATERAL CATARACT SURGERY - Anesthesia Hx Anesthesia: No Family/Social History - Physician Review Nursing Documentation Reviewed: Yes Family/Social History: No Known Family HX Smoking Status: Never Smoked Hx Alcohol Use: No Hx Substance Use: No Hx Substance Use Treatment: No Allergies/Home Meds Allergies/Adverse Reactions: Allergies ciprofloxacin Allergy (Verified 11/19/17 12:34) RASH steriod Allergy (Uncoded 11/19/17 12:34) ANAPHYLAXIS sulfur Allergy (Uncoded 11/19/17 12:34) ANAPHYLAXIS Home Medications: Home Meds Medication Instructions Recorded Confirmed Atorvastatin [Lipitor] 20 mg PO DAILY 09/12/15 11/19/17 Clonazepam [Klonopin] 0.5 mg PO QID 09/12/15 11/19/17 Folic Acid 1 mg PO Q4 09/12/15 11/19/17 Lansoprazole [Prevacid] 30 mg PO DAILY 09/12/15 11/19/17 Levothyroxine [Synthroid] 100 mcg PO DAILY 09/12/15 11/19/17 Review of Systems - Physician Review All systems were reviewed & negative as marked: Yes - Review of Systems Constitutional: absent: Fevers Neurological: absent: Headache, Dizziness Physical Exam - Physical Exam Narrative Physical Exam (Text): 11/19/17 13:29 Constitutional: No acute distress. Head: Normocephalic. Atraumatic. Eyes: PERRL. ENT: Moist mucous membranes. Neck: Supple. Cardiovascular: Regular rate. Chest: No tenderness. Respiratory: Clear to auscultation bilaterally. GI: Soft. Nontender. Nondistended. Back: No CVA tenderness. Musculoskeletal: No tenderness or swelling of extremities. Skin: No rash. Neurologic: Alert, no focal deficit. Cranial nerve II-XII intact. Motor function 5/5 x4, Sensation to light touch intact bilaterally. Finger to nose normal. Heel to hassan normal. Vital Signs Reviewed: Yes Vital Signs Temp Pulse Resp BP Pulse Ox 11/19/17 12:51 98.2 F 100 H 18 111/77 99 Temperature: Afebrile Blood Pressure: Normal Pulse: Regular Respiratory Rate: Normal Appearance: Positive for: Well-Appearing Mental Status: Positive for: Alert and Oriented X 3 Medical Decision Making ED Course and Treatment: 11/19/17 13:30 Impression: Patient is a 61 year old male who presents to the Emergency department by EMS for slurred speech with left facial numbness and bilateral lower extremity weakness. Differential Diagnosis included but are not limited to: TIA vs. Neuropathy Plan: --Head CT without contrast --Labs and cardiac enzymes -- EKG -- Chest X-ray --IV fluids -- Reassess and disposition Prior Visits: Notes and results from previous visits were reviewed. Patient was last seen in the emergency department on 10/24/17 and was hospitalized for bilateral arm tingling, dizziness, and possible TIA. Progress Notes: 11/19/17 13:30 EKG shows NSR at 100 BPM with PVCs. Interpreted by me. 11/19/17 14:[address] without contrast: Creator : Paul Clarke MD COMPARISON: 10/24/2017. CT head IMPRESSION: No acute intracranial abnormalities. No significant findings to account for the clinical presentation. No significant interval change compared to the prior examination(s). Chest X-ray: Creator : Paul Clarke MD IMPRESSION: No active disease. No significant interval change compared to the prior examination(s). 11/19/17 14:45 Discussed case with , who is aware and agrees to admit patient to his service. Requests for consultation. - Lab Interpretations Lab Results: 11/19/17 13:15 11/19/17 13:15 Lab Results 11/19/17 13:15: Blood Type A POSITIVE, Antibody Screen Negative, BBK History Checked Patient has bt 11/19/17 13:15: Sodium 124 L, Potassium 3.5 L, Chloride 84 L, Carbon Dioxide 26 , Anion Gap 18, BUN 10, Creatinine 0.8, Est GFR ( Amer) > 60, Est GFR ( Non-Af Amer) > 60, Random Glucose 119 H, Calcium 9.7, Total Bilirubin 0.7, AST 46, ALT 30, Alkaline Phosphatase 55, Troponin I < 0.01, Total Protein 8.0, Albumin 4.8, Globulin 3.2, Albumin/Globulin Ratio 1.5, Triglycerides 126, Cholesterol 203 H, LDL Cholesterol Direct 124, HDL Cholesterol 44 11/19/17 13:15: PT 11.9, INR 1.04, APTT 26.2 11/19/17 13:15: WBC 9.4, RBC 4.10, Hgb 12.8 L, Hct 34.3 L, MCV 83.7 D, MCH 31.2 , MCHC 37.3 H, RDW 12.3, Plt Count 327, MPV 8.6, Gran % 62.2, Lymph % (Auto) 26.3, Pratt % (Auto) 10.3 H, Eos % (Auto) 1.1 L, Baso % (Auto) 0.1, Gran # 5.83, Lymph # (Auto) 2.5, Pratt # (Auto) 1.0 H, Eos # (Auto) 0.1, Baso # (Auto) 0.01 I have reviewed the lab results: Yes - RAD Interpretation Radiology Orders: 11/19/17 HEAD W/O CONTRAST [CT] Stat 11/19/17 13:11 CHEST PORTABLE [RAD] Stat [employer] Machinist: Radiologist - EKG Interpretation Interpreted by ED Physician: Yes Type: 12 lead EKG - Medication Orders Current Medication Orders: Sodium Chloride (Sodium Chloride 0.9%) 1,000 mls @ 100 mls/hr IV .Q10H ACACIA Last Admin: 11/19/17 13:32 Dose: 100 mls/hr eMAR Start Stop Document 11/19/17 13:32 ASAEL (Rec: 11/19/17 13:33 ASAEL [email or web address]) Intravenous Solution Start Date 11/19/17 Start Time 13:33 Discontinued Medications Aspirin (Aspirin) 325 mg PO STAT STA Stop: 11/19/17 14:47 NIHSS Scale (Diamond) Time Performed: 13:15 - How Severe is the Stoke Baseline Level of Consciousness: 0=Alert LOC to Questions: 0=Both comments correct LOC to commands: 0=Obeys both correctly Best Gaze: 0=Normal Visual: 0=No visual loss Facial: 0=Normal Motor Arm - Left: 0=No drift Motor Arm - Right: 0=No drift Motor Leg - Left: 0=No drift Motor Leg - Right: 0=No drift Limb Ataxia: 0=Absent Sensory: 0=Normal Best Language: 0=No aphasia Dysarthia: 0=Normal articulation Extinction & Inattention (Neglect): 0=Normal, no object Score: 0 Risk Level: No Stroke Risk rTPA Inclusion/Exclusion - Refusal of Treatment Patient Refused Treatment: No - Inclusion Criteria for Altepase Patient is 18 years or Older: Yes The Clinical Diagnosis of Ischemic Stroke That is Causing a Potentially Disabling Neurological Deficit: No Time of Onset is Well Established to be Less Than 270 Minute Before Treatment Would Begin: Yes Risk/Benefit Discussed With Patient/Family Member Present: Yes - Exclusion Criteria for Altepase Uncontrolled Hypertension at Time of Treatment (Systolic BP above 185 or Diastolic BP above 110 mmHg): No - Scribe Statement The provider has reviewed the documentation as recorded by the Scribe Jai Ericnina Provider Scribe Attestation: All medical record entries made by the Scribe were at my direction and personally dictated by me. I have reviewed the chart and agree that the record accurately reflects my personal performance of the history, physical exam, medical decision making, and the department course for this patient. I have also personally directed, reviewed, and agree with the discharge instructions and disposition. Disposition/Present on Arrival - Present on Arrival Any Indicators Present on Arrival: No History of DVT/PE: No History of Uncontrolled Diabetes: No Urinary Catheter: No History of Decub. Ulcer: No History Surgical Site Infection Following: None - Disposition Have Diagnosis and Disposition been Completed?: Yes Diagnosis: TIA (transient ischemic attack) Disposition: HOSPITALIZED Disposition Time: 14:50 Patient Plan: Observation, Telemetry Condition: FAIR Referrals: Aquilino Vinson MD [Primary Care Provider] - Follow up with primary Forms: [facility] ([place])
[2017-11-19] MEDS ORDERED: Sodium Chloride 0.9% 1,000 ML IV SCH (13:15)
[2017-11-19 13:27] VITALS: BMI 35.4
[2017-11-19 13:48] LABS: BASO # 0.01 K/mm3 (0.0-2.0); BASO % 0.1 % (0.0-3.0); EOS # 0.1 (0.0-0.7); EOS % 1.1 % (1.5-5.0); GRAN # 5.83 (1.4-6.5); GRAN % 62.2 % (50.0-68.0); HEMOGLOBIN 12.8 g/dL (14.0-18.0); LYMPH # 2.5 (1.2-3.4); LYMPH % 26.3 % (22.0-35.0); MEAN CELL VOLUME 83.7 fl (80.0-105.0); MEAN CORPUSCULAR HEMOGLOBIN 31.2 pg (25.0-35.0); MEAN CORPUSCULAR HGB CONC 37.3 g/dl (31.0-37.0); MEAN PLATELET VOLUME 8.6 fl (7.0-11.0); MONO % 10.3 % (1.0-6.0); RBC 4.1 10^6/uL (3.5-6.1); RED CELL DISTRIBUTION WIDTH 12.3 % (11.5-14.5); WHITE BLOOD COUNT 9.4 10^3/ul (4.5-11.0)
[2017-11-19 13:59] LABS: INR 1.04 (0.93-1.08); PARTIAL THROMBOPLASTIN TIME 26.2 Seconds (25.1-36.5); PROTHROMBIN TIME 11.9 SECONDS (9.4-12.5)
[2017-11-19 14:06] LABS: ALB/GLOB RATIO 1.5 (1.1-1.8); ALBUMIN 4.8 g/dL (3.0-4.8); ALT/SGPT 30 U/L (7-56); AST/SGOT 46 U/L (17-59); BLOOD UREA NITROGEN 10 mg/dL (7-21); CALCIUM 9.7 mg/dL (8.4-10.5)
[2017-11-19 14:13] LABS: GFR AFRICAN-AMERICAN > 60; GFR NON-AFRICAN AMERICAN > 60; HDL CHOLESTEROL 44 mg/dL (29-60)
[2017-11-19 14:14] LABS: LDL CHOLESTEROL 124 mg/dL (0-129)
[2017-11-19 14:17] LABS: TROPONIN I < 0.01 ng/mL
--- NOTE | 2017-11-19 14:19 | CT ---
PROCEDURE: CT HEAD WITHOUT CONTRAST. HISTORY: facial numbness, slurred speech, bilateral leg weakness COMPARISON: 10/24/2017. CT head TECHNIQUE: Axial computed tomography images were obtained through the head/brain without intravenous contrast. Coronal and sagittal reconstructed images. Radiation dose: Total exam DLP = 899.46 mGy-cm. This CT exam was performed using one or more of the following dose reduction techniques: Automated exposure control, adjustment of the mA and/or kV according to patient size, and/or use of iterative reconstruction technique. FINDINGS: HEMORRHAGE: No intracranial hemorrhage. BRAIN: No mass effect or edema. Cortical atrophy, periventricular small vessel disease. VENTRICLES: Unremarkable. No hydrocephalus. CALVARIUM: Unremarkable. PARANASAL SINUSES: Unremarkable as visualized. No significant inflammatory changes. MASTOID AIR CELLS: Unremarkable as visualized. No inflammatory changes. OTHER FINDINGS: None. IMPRESSION: No acute intracranial abnormalities. No significant findings to account for the clinical presentation. No significant interval change compared to the prior examination(s).
--- NOTE | 2017-11-19 14:19 | RAD ---
HISTORY: Facial numbness. COMPARISON: 10/24/2017 FINDINGS: LUNGS: No active pulmonary disease. PLEURA: No significant pleural effusion identified, no pneumothorax apparent. CARDIOVASCULAR: No radiographic findings to suggest acute or significant cardiovascular disease. OSSEOUS STRUCTURES: No significant abnormalities. VISUALIZED UPPER ABDOMEN: Normal. OTHER FINDINGS: None. IMPRESSION: No active disease. No significant interval change compared to the prior examination(s).
[2017-11-19 15:09] VITALS: O2SAT 98
[2017-11-19 21:11] LABS: OSMOLALITY,URINE 103 mosm/kg (300-1000)
[2017-11-19] MEDS ORDERED: Pneumococcal 23-Valent Vaccine IM ONE (21:22)
[2017-11-20 05:51] VITALS: RESP 20
[2017-11-20] MEDS ORDERED: Pantoprazole 40 mg EC Tab PO SCH (06:00)
[2017-11-20] MEDS ORDERED: Levothyroxine 100 MCG TAB PO SCH (06:00)
--- NOTE | 2017-11-20 08:28 | CP.PCM.HP ---
<Beck Sykes - Last Filed: 11/20/17 11:18> History of Present Illness - History of Present Illness History of Present Illness: Medicine H&P for Dr. Jeffery Sykes PGY3 HPI: Patient is a 61yo male with past medical history of generalized anxiety, hypertension, hyperlipidemia, hypothyroidism that presents with complaints of slurred speech, left-sided facial numbness and bilateral lower extremity weakness. He reported that his symptoms started approximately 2 hours prior to presentation and that at the time he was awake and sitting when his symptoms started. He also complained of left arm heavyness relative to his right. On examination, he reported resolution of his lower extremity weakness and facial numbness and of note has had a prior admission for weakness/TIA with a nonfocal neurologic examination. At that time, he was evaluated by neurology and an MRI was not deemed necessary. He presently denies chest pain, palpitations, SOB, abdominal pain, nausea, vomiting, fever, chills, cough, focal weakness, numbness , tingling. He stated that his symptoms resolved shortly after appearing in the emergency room. On prior similar admission, he admits to not following up with neurology for evaluation of possible neuropathy. 12point ROS as per HPI above, otherwise negative PMH: as stated above PSH: cataract surgery Allergies: Ciprofloxacin and steroids Social Hx: Denies tobacco, alcohol and illicit drug use Family Hx: Non-contributory Present on Admission - Present on Admission Any Indicators Present on Admission: No Past Patient History - Infectious Disease Hx of Infectious Diseases: None - Past Social History Smoking Status: Never Smoked - CARDIAC Hx Cardiac Disorders: Yes Hx Cardia Arrhythmia: Yes (palpitation) Hx Hypercholesterolemia: Yes Hx Hypertension: Yes Other/Comment: hypertensive urgency, lle variscosities - PULMONARY Hx Respiratory Disorders: No - NEUROLOGICAL Hx Neurological Disorder: Yes HX Cerebrovascular Accident: Yes Hx Dizziness: Yes Other/Comment: subarachnoid hemorrhage - HEENT Hx HEENT Problems: Yes (eyeglasses) Hx Cataracts: Yes (BILATERAL SURGERY) - RENAL Hx Chronic Kidney Disease: No - ENDOCRINE/METABOLIC Hx Hypothyroidism: Yes - HEMATOLOGICAL/ONCOLOGICAL Hx Blood Disorders: No - INTEGUMENTARY Hx Dermatological Problems: No - MUSCULOSKELETAL/RHEUMATOLOGICAL Hx Falls: No - GASTROINTESTINAL Hx Gastrointestinal Disorders: Yes (obese) - GENITOURINARY/GYNECOLOGICAL Hx Genitourinary Disorders: No - PSYCHIATRIC Hx Psychophysiologic Disorder: Yes Hx Anxiety: Yes - SURGICAL HISTORY Hx Appendectomy: Yes Other/Comment: BILATERAL CATARACT SURGERY - ANESTHESIA Hx Anesthesia: No Meds Allergies/Adverse Reactions: Allergies Allergy/AdvReac Type Severity Reaction Status Date / Time ciprofloxacin Allergy RASH Verified 11/19/17 12:34 steriod Allergy ANAPHYLAXIS Uncoded 11/19/17 12:34 sulfur Allergy ANAPHYLAXIS Uncoded 11/19/17 12:34 Physical Exam - Constitutional Appears: No Acute Distress - Head Exam Head Exam: ATRAUMATIC, NORMAL INSPECTION, NORMOCEPHALIC - Eye Exam Eye Exam: EOMI Pupil Exam: PERRL - ENT Exam ENT Exam: Mucous Membranes Moist - Neck Exam Neck exam: Positive for: Normal Inspection - Respiratory Exam Respiratory Exam: Clear to Auscultation Bilateral. absent: Rales, Rhonchi, Wheezes - Cardiovascular Exam Cardiovascular Exam: RRR, +S1, +S2. absent: Gallop, JVD, Rubs - GI/Abdominal Exam GI & Abdominal Exam: Normal Bowel Sounds, Soft. absent: Distended, Firm, Guarding, Rebound, Rigid, Tenderness - Extremities Exam Extremities exam: Positive for: normal inspection. Negative for: pedal edema, tenderness - Neurological Exam Neurological exam: Alert, CN II-XII Intact, Oriented x3 Additional comments: motor strength 5/5 in bilateral upper and lower extremities sensory exam intact CN 2-12 grossly intact EOMI, PERRL - Psychiatric Exam Psychiatric exam: Normal Affect, Normal Mood - Skin Skin Exam: Dry, Intact, Normal Color, Warm Results - Vital Signs Recent Vital Signs: Last Vital Signs Temp 97.8 F 11/20/17 05:49 Pulse 60 11/20/17 05:49 Resp 20 11/20/17 05:49 BP 147/76 11/20/17 05:49 Pulse Ox 98 11/20/17 05:49 - Labs Result Diagrams: 11/19/17 13:15 11/19/17 13:15 Labs: Laboratory Results - last 24 hr 11/19/17 20:57 Urine Osmolality 103 L Ur Random Sodium 15 Assessment & Plan - Assessment and Plan (Free Text) Plan: 61yo male with history of generalized anxiety, hypertension, hyperlipidemia, hypothyroidism presents with c/o bilateral lower extremity weakness, left-sided facial numbness and slurred speech 1. LE weakness/Facial numbess r/o TIA vs CVA vs neuropathy 2. Hx of generalized anxiety disorder 3. Hypertension 4. Hyperlipidemia 5. Hypothyroidism -Presently, his neurologic examination is nonfocal and he reports resolution of his symptoms. NIHSS 0. He is unable to do an MRI due to claustrophobia. -CT Head reviewed and revealed no acute intracranial abnormalities -CXR revealed no active disease and EKG showed sinus tachycardia with PVC's, no acute ST-T wave changes -Head CT and Carotid US from 10/24/17 reviewed which at that time showed no acute abnormalities, bilateral 20-39% proximal ICA stenosis, antegrade flow in both vertebral arteries -He is on lisinopril for hypertension, lipitor for hyperlipidemia, synthroid for hypothyroidism and klonipin for anxiety -He will be discharged home with instructions to follow up with his primary doctor and neurology (Dr. Melendez) within 1 week. He was instructed to stop taking his hydrochlorothiazide. Patient seen and case discussed/reviewed with attending, Dr. Gil - Date & Time Date: 11/20/17 Time: 08:33 <Bayron Gil S - Last Filed: 11/20/17 21:06> Results - Vital Signs Recent Vital Signs: Last Vital Signs Temp 98 F 11/20/17 12:00 Pulse 75 11/20/17 12:17 Resp 20 11/20/17 12:00 BP 146/88 11/20/17 12:17 Pulse Ox 98 11/20/17 05:49 - Labs Result Diagrams: 11/19/17 13:15 11/19/17 13:15 Labs: Laboratory Results - last 24 hr 11/19/17 20:57 Urine Osmolality 103 L Ur Random Sodium 15 Assessment & Plan - Assessment and Plan (Free Text) Plan: Pt seen and examined. I have reviewed the note of the director of graduate medical education and agree with it. I have discussed the assessment and plan with the resident. I have reviewed the patient's labs and medications. Pt with hyponatremia and is on HCTZ. HCT is discontinued. He was advised to f/u with Dr Vinson. He is discharged. He is not able to get an MRI due to clostrophobia. He is able to ambulate and his symptoms have resolved. L facial numbness.
--- NOTE | 2017-11-20 08:32 | CARD ---
APPROVED REPORT EKG Measurement Heart [id number] <Conclusion> Sinus tachycardia with frequent premature ventricular complexes Left ventricular hypertrophy STTW changes Prolonged QTc
[2017-11-20 12:18] VITALS: BP 146/88; PULSE 75
[2017-11-20 12:36] VITALS: TEMP 98
--- NOTE | 2017-11-20 23:01 | CON ---
DATE: 11/20/2017 HISTORY OF PRESENT ILLNESS: This is a 61-year-old white male with past medical history of hypertension, hyperlipidemia, hypothyroidism, came with complaining of left facial numbness and bilateral lower extremity weakness. Symptoms started and the patient was sitting on a commode, was unable to get up, had heaviness in the leg and also felt facial numbness which had lasted for a short while and the patient was ambulating, and called to evaluate the patient. PAST MEDICAL HISTORY: Hypertension, hyperlipidemia, hypothyroidism. Past medical history as above. SOCIAL HISTORY: Does not smoke, does not drink. REVIEW OF SYSTEMS: Ten-point review of systems was negative. PHYSICAL EXAMINATION VITAL SIGNS: Blood pressure 147/76. HEENT: Normocephalic, atraumatic. NECK: Supple. NEUROLOGIC: Alert, awake, oriented x3. No aphasia. Cranial nerve II through XII were tested. Pupils reactive. Motor examination: Moves all the extremities spontaneously. Deep tendon reflexes are 1+. Both plantars are downgoing. Sensory appears intact. Cerebellar, gait normal. LABORATORY DATA: CAT scan of the head was done which was reported negative. WBC 9.4, hemoglobin 12.8, hematocrit 34.3, platelet 327. Sodium 124, potassium 3.5, chloride 84, CO2 of 26, glucose 119, BUN 10, creatinine 0.8. IMPRESSION AND PLAN: Transient ischemic attack, possibly peripheral neuropathy. This is a 61-year-old male with hypertension, hyperlipidemia and hypothyroidism, who complained of bilateral lower extremity weakness and left facial numbness and slurred speech, and workup is negative and continue present management. Bilateral carotid Doppler, 20% to 39% stenosis. We will follow up. Jacoby Melendez MD
== END 2017-11-20 16:02 | disposition home or self-care (01) ==
LOC: ED 12:21 → ERH 14:45 → 2RNO 15:49
PROVIDERS: ADMIT Internal Medicine Nephrology; ATTEND Internal Medicine Nephrology
DX: G45.9 Transient cerebral ischemic attack, unspecified (principal); I10 Essential (primary) hypertension; E03.9 Hypothyroidism, unspecified; F41.1 Generalized anxiety disorder; E78.5 Hyperlipidemia, unspecified; E78.00 Pure hypercholesterolemia, unspecified
CPT/HCPCS: 70450; 71045; 80053; 80061; 82948; 83036; 83930; 83935; 84300; 84484; 85025; 85610; 85730; 86850; 86900; 93005; 96360; 97116; 97161; 97530; 99285; G0378; G8978; G8979; G8980; J7030

== ENCOUNTER 2018-05-10 15:06 | Observation (INO) | payer OTHER ==
[2018-05-10 15:08] VITALS: BMI 20.7
--- NOTE | 2018-05-10 15:59 | ED PDOC ---
Arrival/HPI - General Chief Complaint: Altered Mental Status Time Seen by Provider: 05/10/18 15:17 Historian: Patient - History of Present Illness Narrative History of Present Illness (Text): 05/10/18 15:54 62 year old male, whose past medical history includes hypertension and hyperlipidemia, who presents to the emergency department complaining of dizziness. Patient is a poor historian. states "he blacked out for a few seconds" and was confused Patient denies any fevers, chills, chest pain, shortness of breath, abdominal pain, nausea, vomiting, diarrhea, back pain, neck pain, urinary symptoms, headache, or any other complaint. 05/10/18 19:10 Time/Duration: Prior to Arrival Symptom Onset: Gradual Symptom Course: Unchanged Activities at Onset: Light Context: Home Past Medical History - Provider Review Nursing Documentation Reviewed: Yes - Past History Past History: No Previous - Infectious Disease Hx of Infectious Diseases: None - Cardiac Hx Cardiac Disorders: Yes Hx Cardiac Arrhythmia: Yes (palpitation) Hx Hypertension: Yes Other/Comment: hypertensive urgency, lle variscosities - Pulmonary Hx Respiratory Disorders: No - Neurological Hx Neurological Disorder: Yes HX Cerebrovascular Accident: Yes Hx Dizziness: Yes Other/Comment: subarachnoid hemorrhage - HEENT Hx HEENT Disorder: Yes (eyeglasses) Hx Cataracts: Yes (BILATERAL SURGERY) - Renal Hx Renal Disorder: No - Endocrine/Metabolic Hx Hypothyroidism: Yes - Hematological/Oncological Hx Blood Disorders: No - Integumentary Hx Dermatological Disorder: No - Musculoskeletal/Rheumatological Hx Falls: No - Gastrointestinal Hx Gastrointestinal Disorders: Yes (obese) - Genitourinary/Gynecological Hx Genitourinary Disorders: No - Psychiatric Hx Psychophysiologic Disorder: Yes Hx Anxiety: Yes Hx Substance Use: No - Surgical History Hx Appendectomy: Yes Other/Comment: BILATERAL CATARACT SURGERY - Anesthesia Hx Anesthesia: No Family/Social History - Physician Review Nursing Documentation Reviewed: Yes Family/Social History: Unknown Family HX Smoking Status: Never Smoked Hx Alcohol Use: No Hx Substance Use: No Hx Substance Use Treatment: No Allergies/Home Meds Allergies/Adverse Reactions: Allergies ciprofloxacin Allergy (Verified 11/19/17 12:34) RASH steriod Allergy (Uncoded 11/19/17 12:34) ANAPHYLAXIS sulfur Allergy (Uncoded 11/19/17 12:34) ANAPHYLAXIS Home Medications: Home Meds Medication Instructions Recorded Confirmed RX: Atorvastatin [Lipitor] 20 mg PO DAILY 09/12/15 05/10/18 RX: Clonazepam [Klonopin] 0.5 mg PO QID 09/12/15 05/10/18 RX: Folic Acid 1 mg PO DAILY 09/12/15 05/10/18 RX: Lansoprazole [Prevacid] 30 mg PO DAILY 09/12/15 05/10/18 RX: Levothyroxine [Synthroid] 100 mcg PO DAILY 09/12/15 05/10/18 RX: Docusate Sodium/Sennosides A 1 tab PO DIN 11/19/17 05/10/18 [Senokot S 50 MG-8.6 MG] Review of Systems - Physician Review All systems were reviewed & negative as marked: Yes - Review of Systems Constitutional: Normal Eyes: Normal ENT: Normal Respiratory: Normal. absent: SOB, Cough Cardiovascular: Normal. absent: Chest Pain Gastrointestinal: Normal. absent: Abdominal Pain Genitourinary Male: Normal. absent: Dysuria, Frequency Musculoskeletal: Normal. absent: Back Pain, Neck Pain Skin: Normal. absent: Rash Neurological: Dizziness. absent: Headache Endocrine: Normal Hemo/Lymphatic: Normal Psychiatric: Normal Physical Exam Vital Signs Reviewed: Yes Vital Signs Pulse Resp BP Pulse Ox 05/10/18 15:28 98 H 18 170/95 H 100 Temperature: Afebrile Blood Pressure: Hypertensive Pulse: Regular Respiratory Rate: Normal Appearance: Positive for: Well-Appearing, Non-Toxic, Comfortable Pain Distress: None Mental Status: Positive for: Alert and Oriented X 3 - Systems Exam Head: Present: Atraumatic, Normocephalic Pupils: Present: PERRL Extroacular Muscles: Present: EOMI Conjunctiva: Present: Normal Mouth: Present: Moist Mucous Membranes Neck: Present: Normal Range of Motion Respiratory/Chest: Present: Clear to Auscultation, Good Air Exchange. No: Respiratory Distress, Accessory Muscle Use Cardiovascular: Present: Regular Rate and Rhythm, Normal S1, S2. No: Murmurs Abdomen: No: Tenderness, Distention, Peritoneal Signs Back: Present: Normal Inspection Upper Extremity: Present: Normal Inspection. No: Cyanosis, Edema Lower Extremity: Present: Normal Inspection. No: Edema Neurological: Present: GCS=15, CN II-XII Intact, Speech Normal Skin: Present: Warm, Dry, Normal Color. No: Rashes Psychiatric: Present: Alert, Oriented x 3, Normal Insight, Normal Concentration Medical Decision Making ED Course and Treatment: 05/10/18 15:56 Impression: 62 year old male presents to the emergency department complaining of dizziness, ?syncope vs near syncope - labs ct pending ro intracranil metabolic infectious cardiact etiology Plan: -- CT Head -- EKG -- Cardiac ISO -- Labs -- CXR -- UA -- Reassess and disposition Progress Notes: EKG reviewed, shows Sinus tachycardia at 102bpm. PVC's. 05/10/18 17:00 Chest X-ray reviewed, shows: IMPRESSION: No active disease. No significant interval change compared to the prior examination(s). 05/10/18 19:10 imagign neg. case discussed with dr dailey covering dr eason acceptshonna. - RAD Interpretation Radiology Orders: 05/10/18 15:45 HEAD W/O CONTRAST [CT] Stat 05/10/18 15:46 CHEST PORTABLE [RAD] Stat - Scribe Statement The provider has reviewed the documentation as recorded by the Scribkamar Thomas All medical record entries made by the Scribe were at my direction and personally dictated by me. I have reviewed the chart and agree that the record accurately reflects my personal performance of the history, physical exam, medical decision making, and the department course for this patient. I have also personally directed, reviewed, and agree with the discharge instructions and disposition. Disposition/Present on Arrival - Present on Arrival Any Indicators Present on Arrival: No History of DVT/PE: No History of Uncontrolled Diabetes: No Urinary Catheter: No History of Decub. Ulcer: No History Surgical Site Infection Following: None - Disposition Have Diagnosis and Disposition been Completed?: Yes Diagnosis: Near syncope, Dizziness Disposition: HOSPITALIZED Disposition Time: 15:00 Condition: STABLE Forms: [place] ([place])
[2018-05-10 16:15] LABS: BASO # 0.03 K/mm3 (0.0-2.0); BASO % 0.4 % (0.0-3.0); EOS # 0.2 (0.0-0.7); EOS % 2.6 % (1.5-5.0); GRAN # 4.01 (1.4-6.5); GRAN % 54.1 % (50.0-68.0); HEMOGLOBIN 12.5 g/dL (14.0-18.0); LYMPH # 2.5 (1.2-3.4); LYMPH % 33.7 % (22.0-35.0); MEAN CELL VOLUME 88.4 fl (80.0-105.0); MEAN CORPUSCULAR HEMOGLOBIN 31.5 pg (25.0-35.0); MEAN CORPUSCULAR HGB CONC 35.6 g/dl (31.0-37.0); MEAN PLATELET VOLUME 8.7 fl (7.0-11.0); MONO # 0.7 (0.1-0.6); MONO % 9.2 % (1.0-6.0); RBC 3.97 10^6/uL (3.5-6.1); RED CELL DISTRIBUTION WIDTH 12.3 % (11.5-14.5); WHITE BLOOD COUNT 7.4 10^3/uL (4.5-11.0)
[2018-05-10 16:21] LABS: URINE BILIRUBIN NEGATIVE (NEGATIVE); URINE BLOOD TRACE-INTACT (NEGATIVE); URINE GLUCOSE (UA) NEGATIVE (NEGATIVE); URINE LEUKOCYTE ESTERASE NEGATIVE Leu/uL (NEGATIVE); URINE PROTEIN NEGATIVE mg/dL (<30 mg/dL); URINE UROBILINOGEN 0.2 E.U./dL (<1 E.U./dL)
[2018-05-10 16:22] LABS: URINE APPEARANCE CLEAR (CLEAR); URINE COLOR COLORLESS (YELLOW)
[2018-05-10 16:24] LABS: INR 1.03; PARTIAL THROMBOPLASTIN TIME 29.5 Seconds (25.1-36.5); PROTHROMBIN TIME 11.8 SECONDS (9.4-12.5)
[2018-05-10 16:26] LABS: URINE BACTERIA NEG /hpf; URINE RBC 0 - 2 /hpf (0-2); URINE WBC NEGATIVE /hpf (0-6)
[2018-05-10 16:29] LABS: ALB/GLOB RATIO 1.4 (1.1-1.8); ALBUMIN 4.8 g/dL (3.0-4.8); ALT/SGPT 33 U/L (7-56); AST/SGOT 43 U/L (17-59); BLOOD UREA NITROGEN 6 mg/dL (7-21); CALCIUM 9.4 mg/dL (8.4-10.5); GFR NON-AFRICAN AMERICAN > 60
[2018-05-10 16:39] LABS: TROPONIN I < 0.01 ng/mL
--- NOTE | 2018-05-10 16:44 | RAD ---
Date of service: 05/10/2018 HISTORY: generalzied weakness COMPARISON: 11/19/2017 FINDINGS: LUNGS: No active pulmonary disease. PLEURA: No significant pleural effusion identified, no pneumothorax apparent. CARDIOVASCULAR: No atherosclerotic calcification present Normal. OSSEOUS STRUCTURES: No significant abnormalities. VISUALIZED UPPER ABDOMEN: Normal. OTHER FINDINGS: None. IMPRESSION: No active disease. No significant interval change compared to the prior examination(s).
[2018-05-10 16:45] LABS: CK-MB 4.6 ng/mL (0.0-3.6)
--- NOTE | 2018-05-10 17:44 | CT ---
Date of service: 05/10/2018 PROCEDURE: CT HEAD WITHOUT CONTRAST. HISTORY: dizziness COMPARISON: 11/19/2017 TECHNIQUE: Axial computed tomography images were obtained through the head/brain without intravenous contrast. Supplemental Coronal and Sagittal projections created and reviewed. Radiation dose: Total exam DLP = 1054.40 mGy-cm. This CT exam was performed using one or more of the following dose reduction techniques: Automated exposure control, adjustment of the mA and/or kV according to patient size, and/or use of iterative reconstruction technique. FINDINGS: HEMORRHAGE: No intracranial hemorrhage. BRAIN: No mass effect or edema. No atrophy or chronic microvascular ischemic changes. VENTRICLES: Unremarkable. No hydrocephalus. CALVARIUM: Unremarkable. PARANASAL SINUSES: Unremarkable as visualized. No significant inflammatory changes. MASTOID AIR CELLS: Unremarkable as visualized. No inflammatory changes. OTHER FINDINGS: None. IMPRESSION: No acute intracranial abnormalities. No significant findings to account for the clinical presentation. No significant interval change compared to the prior examination(s).
[2018-05-10] MEDS ORDERED: Sodium Chloride 0.9% 1,000 ML IV SCH (21:00)
[2018-05-10 21:09] VITALS: O2SAT 98
[2018-05-10] MEDS ORDERED: Docusate-Senna 50 mg-8.6 mg Tab PO SCH (22:00)
[2018-05-11 04:10] VITALS: RESP 20
[2018-05-11 06:30] VITALS: TEMP 97.5
[2018-05-11] MEDS ORDERED: Magnesium Oxide 400 mg Tab UD PO ONE (06:40)
[2018-05-11] MEDS ORDERED: Magnesium Sulfate 2 gm/50 ml 2 GM/50 ML BAG IVPB ONE (06:42)
[2018-05-11 07:37] LABS: MEAN CELL VOLUME 89.3 fl (80.0-105.0); MEAN CORPUSCULAR HEMOGLOBIN 31.3 pg (25.0-35.0); MEAN PLATELET VOLUME 8.8 fl (7.0-11.0); RBC 3.84 10^6/uL (3.5-6.1); RED CELL DISTRIBUTION WIDTH 12.5 % (11.5-14.5); WHITE BLOOD COUNT 7.1 10^3/uL (4.5-11.0)
[2018-05-11 07:55] LABS: ALB/GLOB RATIO 1.4 (1.1-1.8); ALBUMIN 4.5 g/dL (3.0-4.8); ALT/SGPT 34 U/L (7-56); AST/SGOT 42 U/L (17-59); BLOOD UREA NITROGEN 6 mg/dL (7-21); CALCIUM 9.7 mg/dL (8.4-10.5); GFR NON-AFRICAN AMERICAN > 60
[2018-05-11 08:32] LABS: OSMOLALITY,URINE 113 mosm/kg (300-1000)
--- NOTE | 2018-05-11 09:35 | HP ---
DATE OF EXAM: 05/11/2018 HISTORY OF PRESENT ILLNESS: This is 62-year-old male who is coming into the hospital because of dizziness. The patient has a past medical history of hypertension, dyslipidemia, did come into the hospital because of dizziness. He says that he may have blacked out for few seconds. He says most things are because of dizziness. He denies any loss of consciousness. He has no chest pain. No shortness of breath. No nausea. No vomiting. No dysuria or frequency. No nocturia. He does not take any hydrochlorothiazide. He takes his lisinopril. He has no fevers or chills. No abdominal pain or back pain. No weakness in the arms or legs. All of the review of systems are within normal limits except as mentioned. PAST MEDICAL HISTORY: Hypertension, anxiety, dyslipidemia and hypothyroidism. SOCIAL HISTORY: He denies smoking, drinking alcohol. He lives in senior housing alone. FAMILY HISTORY: Noncontributory. ALLERGIES: CIPRO AND STEROIDS. PAST SURGICAL SURGERY: Cataract surgery. PHYSICAL EXAMINATION: VITAL SIGNS: Temperature is 97.5, pulse of 80, blood pressure 151/89, respirations 20 and O2 saturation 98%. Height is 5 feet 10 inches. Weight I s 145 pounds. BMI is 20.8. GENERAL: The patient is lying in bed, comfortable, and in no acute distress. HEENT: Atraumatic and normocephalic. Anicteric sclerae. Moist mucosa. [place] conjunctivae. No oral lesions. NECK: No JVD, anterior and posterior adenopathy, thyromegaly, or bruits. CARDIOVASCULAR: S1 and S2 regular. No murmurs, rubs or gallops. LUNGS: Clear to auscultation bilaterally. No wheezes, rales, or rhonchi. ABDOMEN: Bowel sounds are positive. Soft, nontender and nondistended. No hepatosplenomegaly. No rebound and no guarding EXTREMITIES: No cyanosis, clubbing, or edema. NEUROLOGIC: No facial asymmetry. Tongue is midline. No uvula deviation. Power is 5/5 upper extremities and lower extremities. Sensation intact in upper extremities and lower extremities. PSYCHIATRIC: She is awake, alert and oriented x3. No anxiety or depression. She has normal affect. GENITOURINARY: No CVA tenderness. VASCULAR: 2+ pulses in the carotid pulses and pedal pulses. SKIN: No erythema or nodules SPINE: Shows normal curvature. LABORATORY DATA: White count is 7.4, hemoglobin 12.5 and platelet counts 329. INR is 1.03. Sodium is 127, repeat is 131. The patient has a magnesium at 1.4 and troponin is 0.01. Urine shows nitrates are negative, bilirubin are negative. Blood is trace. CT of the head done, shows no acute intracranial findings. EKG shows heart rate of 102, sinus tachy. His QTC is 484, there is PVC. Chest x-ray done, shows no infiltrates. ASSESSMENT: 1. Dizziness, secondary to hyponatremia. 2. Hypertension. 3. Anxiety. 4. Hypothyroidism. 5. Dyslipidemia. PLAN: The patient is currently on aspirin.. He is going to continue on Lipitor for dyslipidemia. The patient is on Synthroid for hypothyroidism. He is on Lisinopril for his hypertension. He has improvement in his sodium. His low magnesium was replaced. The patient is currently comfortable. The patient is on a heart-healthy diet. We will discharge the patient home. The patient was told not to do drink extra water as he was drinking at the bedside, and he says he does drink water in between meals, this will help prevent his hyponatremia. CONDITION: Stable. ACTIVITIES: Increase as tolerated. We will follow Dr. Vinson in 1-2 weeks. The patient is advised coming to the ER if he has worsening symptoms. Discharge home. Bayron Gil MD
[2018-05-11] MEDS: Docusate-Senna 50 mg-8.6 mg Tab PO STA ×2 (09:39→10:01)
[2018-05-11] MEDS: Levothyroxine 100 MCG TAB PO SCH ×2 (09:39→10:00)
--- NOTE | 2018-05-11 09:39 | CARD ---
APPROVED REPORT Date of service: 05/10/2018 EKG Measurement Heart [id number] <Conclusion> Sinus tachycardia with frequent premature ventricular complexes LVH STTW changes c/w ischemia Prolonged QTc No change
[2018-05-11 10:00] VITALS: BP 151/89
[2018-05-11 10:22] VITALS: PULSE 78
[2018-05-12] MEDS ORDERED: Pantoprazole 40 mg EC Tab PO SCH (06:00)
== END 2018-05-11 11:50 | disposition home or self-care (01) ==
LOC: ED 15:06 → INTOOBSV 18:01 → ERH 18:01 → 2RNO 21:11
PROVIDERS: ADMIT Internal Medicine Nephrology; ATTEND Internal Medicine Nephrology
DX: E87.1 Hypo-osmolality and hyponatremia (principal); R42 Dizziness and giddiness; I10 Essential (primary) hypertension; F41.9 Anxiety disorder, unspecified; E78.5 Hyperlipidemia, unspecified; E03.9 Hypothyroidism, unspecified; Z86.73 Personal history of transient ischemic attack (TIA), and cerebral infarction without residual deficits; Z90.49 Acquired absence of other specified parts of digestive tract
CPT/HCPCS: 36415; 70450; 71045; 80053; 81001; 82550; 82553; 83615; 83735; 83930; 83935; 84300; 84484; 85025; 85027; 85610; 85730; 93005; 99285; G0378; J7030